=== PATIENT | male | born 1985 | race Caucasian/White ===

== ENCOUNTER 2018-11-14 20:51 | Inpatient (IN) | payer BC ==
[~2018-11-14] VITALS: Ht 177.8 cm; Wt 185.6 kg
[~2018-11-14 20:51] MED LIST: BEN25 PO; CEPH-443 PO; HYDR-3601 PO; PRED20TA PO; SACC250C PO; SULF1TAB31 PO
[2018-11-14] MEDS ORDERED: SOD CHLORIDE 0.9% 1,000 ML IV SCH (20:55)
[2018-11-14] MEDS ORDERED: ONDANSETRON 4 MG INJ IV PRN ×2 (21:00→23:30)
[2018-11-14] MEDS ORDERED: morphine 2 MG INJ IV PRN (21:00)
[2018-11-14] MEDS ORDERED: NACL 0.9% 3 ML SYG IV SCH (21:00)
[2018-11-14] MEDS ORDERED: VANCOMYCIN IV PER PHARMACY XX SCH (21:00)
[2018-11-14] MEDS ORDERED: ACETAMINOPHEN 325 MG TAB PO PRN ×2 (21:00→23:30)
[2018-11-14] MEDS ORDERED: BISACODYL (EC) 5 MG TAB PO PRN (21:00)
--- NOTE | 2018-11-14 22:03 | HP ---
Date/Time of Note Date/Time of Note DATE: 11/14/18 TIME: 21:52 Assessment/Plan VTE Prophylaxis SCD applied (from Nsg): Yes Pharmacological prophylaxis: NA/contraindicated Pharm contraindication: low risk/ambulating Assessment/Plan Hospital Course This is a 33-year-old [facility] for: #1 right groin abscess: Ultrasound shows evidence of a fluid collection consistent with likely a phlegmon/abscess, please see HPI for full details. Pat ient at the current time will be taken to the OR for I&D/drainage of the abscess by the general surgeon on-call . IV fluid hydration with normal saline. We will continue vancomycin and Zosyn. Pain management with morphine. Zofran for nausea. #2 morbidly obese: We will check hemoglobin A1C, lipid panel, TSH. Encourage diet and lifestyle modification. #3 DVT GI prophylaxis: SCDs, no GI prophylaxis indicated Further treatment strategy will be implemented as per the clinical course. HPI/ROS Admit Date/Time Admit Date/Time Hx of Present Illness Chief complaint: Right groin pain, redness This is a 33-year-old male with no past medical history who presented originally to [facility] with symptoms of right inguinal swelling and pain. Patient was transferred to [facility] secondary to insurance purposes. Patient reports that originally he had pain of his right groin on Tuesday. He went to [place] [facility] and had a CT scan performed which showed no bowel obstruction or free anterior abdominal air large fatty infiltrated liver. Small ventral hernia containing fat. Patient was given pain medication and discharged home. He states that he did have nausea earlier today but he attributes that to him getting the tramadol. He stated that he started noticing redness and pain of his right groin which took him back to the emergency department. He had a ultrasound performed of the groin which showed 3.4 cm x 2.3 cm x 1.3 cm heterogeneous collection in the right inguinal region possibly reflecting phlegmon or abscess. No hernia defect is seen. His vitals at [place] showed: Temperature 99.3/pulse 95/respirations 18/blood pressure 131/84/SPO2 93% on room air. EKG showed: Normal sinus rhythm with no concerning ST or T wave normalities. Upon arrival to [facility] emergency department patient reported continued pain in his right groin region. He states that he received morphine at [place] which did help him. I did consult the surgeon on-call regarding the case who graciously came to the bedside. He did see and evaluate the patient and his recommendation was to go to the OR for incision and debridement. Patient also will be initiated on broad-spectrum antibiotics of vancomycin and Zosyn which she already did receive a dose of at [place] [facility] prior to transfer. Pertinent laboratory findings showed: CBC: White blood cells 19.9/hemoglobin 16.8/hematocrit 49.5/platelet count 245 BMP: Sodium 135/potassium 4.1/chloride 95/CO2 28//BUN 8/creatinine 0.79/ Coags: PT 14.3/INR 1.1/PTT 35 lactic acid 1.1 Allergies: NKDA medications: None ROS Const: As per HPI Eyes : No pain discharge or redness or change in visual acuity ENT: No pain, sore throat, congestion, congestion, dysphagia or discharge Respiratory: No shortness of breath, cough, sputum, wheezing, or pleuritic pain Cardiovascular: No chest pain, palpitation, PND, or edema GI : no change in appetite, abdominal pain, nausea, vomiting, diarrhea, constipation, or change in the color his stool Genitourinary: As per HPI Musculoskeletal: No joint pain, back pain, neck pain, restricted range of motion in neck or joints Skin: No rash, bruising or hives Neuro: No headache, dizziness, syncope, seizure, focal weakness Endocrine: No polyuria, polydipsia, temperature intolerance Psych: No hallucination, depression, anxiety or suicidal ideation PMH/Family/Social Past Medical History Medical History: no pertinent history Medications Current Medications Sodium Chloride 1,000 ml @ 75 mls/hr [id number] IV ; Start 11/14/18 at 20:55 IV Flush (NS 3 ml) 3 ml PER PROTOCOL IV ; Start 11/14/18 at 21:00 Ondansetron HCl (Zofran Inj) 4 mg Q6H PRN IV NAUSEA/VOMITING; Start 11/14/18 at 21:00 Acetaminophen (Tylenol Tab) 650 mg Q6H PRN PO .PAIN 1-3 OR TEMP; Start 11/14/18 at 21:00 Acetaminophen/ Hydrocodone Bitart ([place] (5/325)) 1 tab Q6H PRN PO .MOD PAIN 4- 6; Start 11/14/18 at 21:00 Docusate Sodium (Colace) 100 mg Q12H PRN PO .CONSTIPATION; Start 11/14/18 at 21:00 Bisacodyl (Dulcolax) 5 mg DAILY PRN PO .CONSTIPATION; Start 11/14/18 at 21:00 Vancomycin HCl (Vanco Iv Per Pharmacy) VANCOMYCIN PER PHARMACY PER PROTOCOL XX ; Start 11/14/18 at 21:00; Status UNV Piperacillin Sod/ Tazobactam Sod 100 ml @ 200 mls/hr Q6 IVPB ; Start 11/15/18 at 00:00 Morphine Sulfate (morphine) 4 mg Q4H PRN IV .SEVERE PAIN 7-10; Start 11/15/18 at 01:00 Coded Allergies: No Known Allergy (Unverified , 11/14/18) Past Surgical History Past Surgical Hx: no surgical history Family History Significant Family History: no pertinent family hx Social History Alcohol Use: none Drug Use: marijuana Exam/Review of Systems Vital Signs Vitals Vital Signs Date Temp Pulse Resp B/P (MAP) Pulse Ox O2 O2 Flow FiO2 Time Delivery Rate 11/14/18 98.7 79 19 142/81 100 20:56 (101) Exam Exam General: Patient is a pleasant male currently lying in bed he does appear to be in mild distress when his groin is palpated. HEENT: Atraumatic, normocephalic. The pupils are equal, round and reactive. Extraocular motor are intact Neck: Supple with full range of motion. No rigidity or meningismus Chest: Nontender Lungs: Clear to auscultation bilaterally no crackles rales or wheezing Heart: Normal S1-S2, Regular rhythm and rate. No murmur, S3, or S4 Abdomen: Soft , nontender, nondistended , bowel sounds are present. No guarding no rebound tenderness , No masses or organomegaly. No costovertebral temporal angle mass Genitourinary: Swelling and tenderness and redness noted at the right groin/inguinal region. No crepitus. Skin: Swelling and tenderness and redness noted at the right groin/inguinal region. No crepitus. Extremities: Normal to inspection, no edema no cyanosis Neurologic: Normal mental status, speech normal, cranial nerves II through XII are intact, motor and sensory are intact, ELVA,BELL Nov 14, 2018 22:02
[2018-11-14] MEDS ORDERED: morphine 4 MG/ML VIAL IV STA (22:12)
[2018-11-14] MEDS ORDERED: ONDANSETRON 4 MG INJ IV STA (22:12)
--- NOTE | 2018-11-14 22:16 | CONS ---
Assessment/Plan Assessment/Plan Problems: (1) Abscess of right groin Status: Acute Assessment/Plan (Daily) Based on the clinical picture and the previous ultrasound imaging I assume the patient has a right groin abscess. Given the high white count and significant swelling or redness I think the patient needs urgent incisional drainage of the right abscess to avoid this further spread. Consultation Date/Type/Reason Admit Date/Time Date of Consultation: Nov 14, 2018 Type of Consult Surgical Reason for Consultation Right groin abscess Date/Time of Note DATE: 11/14/18 TIME: 22:11 Hx of Present Illness Chief complaint: Right groin pain, redness This is a 33-year-old male with no past medical history who presented originally to [facility] with symptoms of right inguinal swelling and pain. Patient reports that originally he had pain of his right groin on Tuesday. He went to [place] ER and had a CT scan performed which showed no bowel obstruction or free anterior abdominal air large fatty infiltrated liver. Small ventral hernia containing fat. Patient was given pain medication and discharged home. He states that he did have nausea earlier today but he attributes that to him getting the tramadol. He stated that he started noticing redness and pain of his right groin which took him back to the emergency department. He had a ultrasound performed of the groin which showed 3.4 cm x 2.3 cm x 1.3 cm heterogeneous collection in the right inguinal region possibly reflecting phlegmon or abscess. No hernia defect is seen. She is vitals at [place] showed: Temperature 99.3/pulse 95/respirations 18/blood pressure 131/84/SPO2 93% on room air. EKG showed: Normal sinus rhythm with no concerning ST or T wave normalities. Pertinent laboratory findings showed: White blood cells 19.9/hemoglobin 16.8/hematocrit 49.5/platelet count 245 Sodium 135/potassium 4.1/chloride 95/CO2 28//BUN 8/creatinine 0.79/PT 14.3/INR 1.1/PTT 35 lactic acid 1.1 Constitutional: no complaints, improved Eyes: no complaints ENT: no complaints Respiratory: no complaints Cardiovascular: no complaints Gastrointestinal: no complaints Genitourinary: no complaints Musculoskeletal: no complaints Skin: no complaints Neurologic: no complaints Endocrine: no complaints Lymphatic: no complaints Psychological: no complaints, nl mood/affect Immunologic: no complaints Past Medical History Medical History: no pertinent history Medications Current Medications Sodium Chloride 1,000 ml @ 75 mls/hr [id number] IV ; Start 11/14/18 at 20:55 IV Flush (NS 3 ml) 3 ml PER PROTOCOL IV ; Start 11/14/18 at 21:00 Ondansetron HCl (Zofran Inj) 4 mg Q6H PRN IV NAUSEA/VOMITING; Start 11/14/18 at 21:00 Acetaminophen (Tylenol Tab) 650 mg Q6H PRN PO .PAIN 1-3 OR TEMP; Start 11/14/18 at 21:00 Acetaminophen/ Hydrocodone Bitart ([place] (5/325)) 1 tab Q6H PRN PO .MOD PAIN 4- 6; Start 11/14/18 at 21:00 Docusate Sodium (Colace) 100 mg Q12H PRN PO .CONSTIPATION; Start 11/14/18 at 21:00 Bisacodyl (Dulcolax) 5 mg DAILY PRN PO .CONSTIPATION; Start 11/14/18 at 21:00 Vancomycin HCl (Vanco Iv Per Pharmacy) VANCOMYCIN PER PHARMACY PER PROTOCOL XX ; Start 11/14/18 at 21:00 Piperacillin Sod/ Tazobactam Sod 100 ml @ 200 mls/hr Q6 IVPB ; Start 11/15/18 at 00:00 Morphine Sulfate (morphine) 4 mg Q4H PRN IV .SEVERE PAIN 7-10; Start 11/15/18 at 01:00 Vancomycin HCl 2 gm/Sodium Chloride 500 ml @ 125 mls/hr Q24H IVPB ; Start 11/14/18 at 22:30; Stop 11/14/18 at 23:59 Allergies: Coded Allergies: No Known Allergy (Unverified , 11/14/18) Past Surgical History Past Surgical Hx: no surgical history Social History Drug Use: marijuana Exam/Review of Systems Exam Vitals Vital Signs Date Temp Pulse Resp B/P (MAP) Pulse Ox O2 O2 Flow FiO2 Time Delivery Rate 11/14/18 98.7 79 19 142/81 100 20:56 (101) Constitutional: alert, oriented, well developed Psych: no complaints, nl mood/affect Head: normocephalic, atraumatic Eyes: nl conjunctiva, EOMI, nl lids, nl sclera, PERRL ENMT: nl external ears & nose, nl lips & teeth, nl nasal mucosa & septum Neck: supple, non-tender Respiratory: clear to auscultation, normal air movement Cardiovascular: regular rate and rhythm, nl pulses Gastrointestinal: soft, nl liver, spleen, non-tender, other (The right groin is tender with redness and significant swelling, not obvious fluctuation can be felt, but the patient is very sensitive to touch.) Musculoskeletal: nl extremities to inspection, nl gait and stance Extremities: normal pulses 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, nl mental status, nl speech, nl strength Skin: nl turgor; No rash or lesions Lymph: nl lymph nodes Medications Medication Current Medications Sodium Chloride 1,000 ml @ 75 mls/hr [id number] IV ; Start 11/14/18 at 20:55 IV Flush (NS 3 ml) 3 ml PER PROTOCOL IV ; Start 11/14/18 at 21:00 Ondansetron HCl (Zofran Inj) 4 mg Q6H PRN IV NAUSEA/VOMITING; Start 11/14/18 at 21:00 Acetaminophen (Tylenol Tab) 650 mg Q6H PRN PO .PAIN 1-3 OR TEMP; Start 11/14/18 at 21:00 Acetaminophen/ Hydrocodone Bitart ([place] (5/325)) 1 tab Q6H PRN PO .MOD PAIN 4- 6; Start 11/14/18 at 21:00 Docusate Sodium (Colace) 100 mg Q12H PRN PO .CONSTIPATION; Start 11/14/18 at 21:00 Bisacodyl (Dulcolax) 5 mg DAILY PRN PO .CONSTIPATION; Start 11/14/18 at 21:00 Vancomycin HCl (Vanco Iv Per Pharmacy) VANCOMYCIN PER PHARMACY PER PROTOCOL XX ; Start 11/14/18 at 21:00 Piperacillin Sod/ Tazobactam Sod 100 ml @ 200 mls/hr Q6 IVPB ; Start 11/15/18 at 00:00 Morphine Sulfate (morphine) 4 mg Q4H PRN IV .SEVERE PAIN 7-10; Start 11/15/18 at 01:00 Vancomycin HCl 2 gm/Sodium Chloride 500 ml @ 125 mls/hr Q24H IVPB ; Start 11/14/18 at 22:30; Stop 11/14/18 at 23:59 TAYLOR HEALY MD Nov 14, 2018 22:16
[2018-11-14] MEDS ORDERED: VANCOMYCIN HCL 2 GM in SOD CHLORIDE 0.9% 500 ML IVPB SCH (22:30)
--- NOTE | 2018-11-14 22:36 | PREAC ---
Date/Time of Note Date/Time of Note DATE: 11/14/18 TIME: 22:34 Anesthesia Eval and Record Evaluation Time Pre-Procedure Interview DATE: 11/14/18 TIME: 22:34 Age 33 Sex male NPO: 8 hrs Preoperative diagnosis Rt groin abscess Planned procedure I&D Rt groin abscess Past Medical History Past Medical History: Includes Pulm: COPD, Sleep Apnea, Home CPAP GI: Morbid obesity Surgery & Anesthesia Issues No known issue Meds Anticoagulation: No Beta Galdino within 24 hr: No Reason Beta Galdino not given: Pt. not on B-Galdino Current Medications Sodium Chloride 1,000 ml @ 75 mls/hr [id number] IV ; Start 11/14/18 at 20:55 IV Flush (NS 3 ml) 3 ml PER PROTOCOL IV ; Start 11/14/18 at 21:00 Ondansetron HCl (Zofran Inj) 4 mg Q6H PRN IV NAUSEA/VOMITING; Start 11/14/18 at 21:00 Acetaminophen (Tylenol Tab) 650 mg Q6H PRN PO .PAIN 1-3 OR TEMP; Start 11/14/18 at 21:00 Acetaminophen/ Hydrocodone Bitart ([place] (5/325)) 1 tab Q6H PRN PO .MOD PAIN 4- 6; Start 11/14/18 at 21:00 Docusate Sodium (Colace) 100 mg Q12H PRN PO .CONSTIPATION; Start 11/14/18 at 21:00 Bisacodyl (Dulcolax) 5 mg DAILY PRN PO .CONSTIPATION; Start 11/14/18 at 21:00 Vancomycin HCl (Vanco Iv Per Pharmacy) VANCOMYCIN PER PHARMACY PER PROTOCOL XX ; Start 11/14/18 at 21:00 Piperacillin Sod/ Tazobactam Sod 100 ml @ 200 mls/hr Q6 IVPB ; Start 11/15/18 at 00:00 Morphine Sulfate (morphine) 4 mg Q4H PRN IV .SEVERE PAIN 7-10; Start 11/15/18 at 01:00 Vancomycin HCl 2 gm/Sodium Chloride 500 ml @ 125 mls/hr Q24H IVPB ; Start 11/14/18 at 22:30; Stop 11/14/18 at 23:59 Meds reviewed: Yes Allergies Coded Allergies: No Known Allergy (Unverified , 11/14/18) Allergies Reviewed: Yes Labs/Studies Labs Reviewed: Reviewed by anesthesiologist test: N/A Studies: ECG Pre-procedure Exam Last vitals Vital Signs Date Temp Pulse Resp B/P (MAP) Pulse Ox O2 O2 Flow FiO2 Time Delivery Rate 11/14/18 98.7 95 19 137/71 98 22:11 (93) Airway: Adequate mouth opening, Adequate thyromental dist Mallampati: Mallampati III Teeth: Normal Lung: Normal Heart: Normal ASA Physical Status ASA physical status: 3 Emergency: E Planned Anesthetic General/MAC: MAC Planned Pain Management Parenteral pain med, Local by surgeon Pre-operative Attestations Prior to commencing anesthesia and surgery, the patient was re-evaluated, there was verification of: *The patient's identity *The results of appropriate recent lab work and preoperative vital signs *The above evaluation not changing prior to induction *Anesthetic plan, risk benefits, alternative and complications discussed with patient/family; questions answered; patient/family understands, accepts and wishes to proceed. WAYLON MADRIGAL MD Nov 14, 2018 22:36
[2018-11-14] MEDS ORDERED: KETAMINE (50 MG/ML) 10 ML VIAL ONE (22:50)
[2018-11-14] MEDS ORDERED: MIDAZOLAM 1 MG/ML 2 ML INJ ONE (22:50)
[2018-11-14] MEDS ORDERED: FENTAnyl 50 MCG/ML VIAL ONE ×2 (22:50→23:05)
[2018-11-14] MEDS ORDERED: LIDOCAINE 2% (SDV) 5 ML INJ ONE (23:14)
[2018-11-14] MEDS ORDERED: PROPOFOL 20 ML ONE (23:14)
--- NOTE | 2018-11-14 23:23 | OPR ---
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 Procedure Description Patient was placed supine. IV sedation was induced by anesthesiologist. The right groin was prepped and draped in usual sterile fashion. The wound was probed with the 16-gauge needle and small amount of past was obtained. Over this point the incision incision was made over the most tender in's swelled part of the right groin. It was carried down through the subcutaneous tissue to the subcutaneous fat. No obvious collection was encountered the area was generously incised and drained. The wound was packed and and dressed. TAYLOR HEALY MD Nov 14, 2018 23:23
[2018-11-14 23:25] VITALS: BP 147/76; PULSE 96; RESP 33
--- NOTE | 2018-11-14 23:25 | PAC ---
Date/Time of Note Date/Time of Note DATE: 11/14/18 TIME: 23:24 Post-Anesthesia Notes Post-Anesthesia Note Last documented vital signs Vital Signs Date Temp Pulse Resp B/P (MAP) Pulse Ox O2 O2 Flow FiO2 Time Delivery Rate 11/14/18 98.7 95 19 137/71 98 22:11 (93) Activity: WNL Respiratory function: WNL Cardiovascular function: WNL Mental status: Baseline Pain reasonably controlled: Yes Hydration appropriate: Yes Nausea/Vomiting absent: Yes Comments BP:136/72, P:89, Spo2:100%, T:98,8 WAYLON MADRIGAL MD Nov 14, 2018 23:25
[2018-11-14 23:30] VITALS: BP 100/52; PULSE 94; RESP 30
[2018-11-14] MEDS ORDERED: FENTAnyl 50 MCG/ML VIAL IV PRN (23:30)
[2018-11-14] MEDS ORDERED: DIPHENHYDRAMINE 50 MG INJ IV PRN ×2 (23:30)
[2018-11-14] MEDS ORDERED: IBUPROFEN 600 MG TAB PO PRN (23:30)
[2018-11-14] MEDS ORDERED: MEPERIDINE 25 MG INJ IV PRN (23:30)
[2018-11-14] MEDS ORDERED: hydrALAzine 20 MG INJ IV PRN (23:30)
[2018-11-14] MEDS ORDERED: HYDROmorphONE 1 MG/5 ML IV SYRINGE IV PRN ×2 (23:30)
[2018-11-14] MEDS ORDERED: LABETALOL HCL 20MG INJ IV PRN (23:30)
[2018-11-14] MEDS ORDERED: METOCLOPRAMIDE 10 MG INJ IV PRN (23:30)
--- NOTE | 2018-11-14 23:33 | ERD ---
ER Documentation Chief Complaint Chief Complaint sheba pa from dry run for abscess, admission HPI This is a 33-year-old male who presented to the emergency department transferred from [facility] as a direct admission. Given that there is no beds available the patient did have to go through the emergency room. He had been admitted to the primary care physician Dr. Casey who kindly came in initially evaluated the patient as well. The patient has no underlying past medical history. The patient was complaining of right inguinal pain and swelling which took him to [facility]. Due to insurance purposes he was brought to [facility] [place]. An ultrasound have been obtained at [facility] which indicated there was a 3.4 x 2.3 x 1.3 cm heterogeneous collection in the right inguinal region likely suggestive of a phlegmon or abscess. There is no hernia that was seen. No recent fever shaking or chills. ROS All systems reviewed and are negative except as per history of present illness. Allergies Allergies: Coded Allergies: No Known Allergy (Unverified , 11/14/18) PMhx/Soc Medical and Surgical Hx: pt denies Medical Hx, pt denies Surgical Hx Hx Alcohol Use: No Hx Substance Use: Yes (Marijuana) Hx Tobacco Use: No Smoking Status: Never smoker Physical Exam Vitals Vital Signs Date Temp Pulse Resp B/P (MAP) Pulse Ox O2 O2 Flow FiO2 Time Delivery Rate 11/14/18 98.7 79 19 142/81 100 20:56 (101) Physical Exam Constitutional:Well-developed. Well-nourished. Respiratory: Not using accessory muscles of respiration.Lungs were clear to auscultation bilaterally. No rhonchi. No rales. No wheezing. Cardiovascular: Regular rate regular rhythm.No murmurs. No rubs were appreciated.S1, S2 normal. Distal pulses are palpable 2+ bilaterally. GI: Abdomen was obese so exam is limited due to body habitus. Nontender. Non D istended. No pulsatile abdominal masses or bruits. No rebound. No guarding. Bowel sounds were present and normal. : Right inguinal swelling with warmth tenderness. Normal lie to both testicles. Results 24 hrs Current Medications Medications Dose Sig/Caren Start Time Status Last (Trade) Ordered Route PRN Stop Time Admin Dose Reason Admin Sodium 1,000 ml @ [id number] IV 8/6/19 DC Chloride 75 mls/hr 20:55 11/14/18 23:24 IV Flush 3 ml PER 11/14/18 (NS 3 ml) PROTOCOL IV 21:00 Ondansetron 4 mg Q6H PRN 11/14/18 HCl (Zofran IV 21:00 Inj) NAUSEA/VOMITI NG 650 mg Q6H PRN 11/14/18 DC Acetaminophen PO .PAIN 1-3 21:00 11/14/18 (Tylenol OR TEMP 23:22 Tab) 1 tab Q6H PRN 11/14/18 Acetaminophen PO .MOD PAIN 21:00 / 4-6 Hydrocodone Bitart ([place] (5/325)) Morphine 2 mg Q4H PRN 11/14/18 DC Sulfate IV .SEVERE 21:00 11/14/18 (morphine) PAIN 7-10 21:41 Docusate 100 mg Q12H PRN 11/14/18 Sodium PO 21:00 (Colace) .CONSTIPATION Bisacodyl 5 mg DAILY PRN 11/14/18 (Dulcolax) PO 21:00 .CONSTIPATION Vancomycin VANCOMYCIN PER 11/14/18 HCl (Vanco PER PHARMACY PROTOCOL XX 21:00 Iv Per Pharmacy) Procedures/MDM This is a 33-year-old male who been seen and evaluated already admitted to the hospitalist. However given that no beds were available upon the patient's arrival he was placed in the emergency room. Dr. Casey was at bedside to fur ther manage the patient's inpatient care. He had administered IV antibiotics. The surgeon Dr. Melgar had kindly came to the bedside immediately took the patient to the OR for definitive treatment. Departure Diagnosis: Primary Impression: Complicated abscess Condition: Serious ANDRA PADILLA MD Nov 14, 2018 23:32
[2018-11-14 23:35] VITALS: BP 116/58; PULSE 92; RESP 29
[2018-11-14 23:40] VITALS: BP 124/65; PULSE 100; RESP 30
[2018-11-14 23:45] VITALS: BP 108/65; PULSE 90; RESP 31
[2018-11-14 23:50] VITALS: BP 104/67; PULSE 98; RESP 31
[2018-11-15 00:28] VITALS: BP 130/62; PULSE 107; RESP 25
[2018-11-15] MEDS: PIPER-TAZO 3.375 GM IV (PMX) 100 ML IVPB SCH ×5 (00:43→23:26)
[2018-11-15] MEDS: D5W-0.45 NACL + KCL 20 MEQ 1,000 ML IV SCH ×3 (00:43→19:17)
[2018-11-15] MEDS: morphine 2 MG INJ IV PRN ×6 (00:50→23:27)
[2018-11-15 00:59] VITALS: Ht 177.8 cm; Wt 185.6 kg
[2018-11-15 02:10] VITALS: BP 121/58; PULSE 92; RESP 18
[2018-11-15 04:18] VITALS: PULSE 78
[2018-11-15] MEDS: HYDROCODONE/APAP (5/325) TAB PO PRN ×3 (06:33→17:48)
[2018-11-15 08:00] VITALS: BP 129/69; PULSE 74; RESP 18
[2018-11-15] MEDS: HEPARIN 5,000 UNIT/1 ML VIAL SC SCH ×2 (09:00→20:12)
[2018-11-15] MEDS: VANCOMYCIN 1.5 GM/NS 250 ML 250 ML IVPB SCH ×2 (09:25→17:48)
[2018-11-15 14:00] VITALS: BP 129/69; PULSE 89; RESP 18
--- NOTE | 2018-11-15 15:46 | PN ---
Date/Time of Note Date/Time of Note DATE: 11/15/18 TIME: 15:37 Assessment/Plan VTE Prophylaxis Risk score (from Ns)>0 risk: 1 SCD applied (from [facility]): No SCD contraindicated: other Pharmacological prophylaxis: heparin Lines/Catheters IV Catheter Type (from [facility]): Peripheral IV Assessment/Plan Assessment/Plan 1. Right groin abscess, s/p I&D on 11/14/2018, continue wound care and antibiotics, follow up with culture, wound care 2. Morbidly obese, encourage diet and lifestyle modification. 3 DVT GI prophylaxis: heparin Result Diagram: 11/15/18 0313 11/15/183 Results 24hrs Laboratory Tests Test 11/15/18 03:13 White Blood Count 18.8 H Red Blood Count 4.98 Hemoglobin 15.1 Hematocrit 45.1 Mean Corpuscular Volume 90.6 Mean Corpuscular Hemoglobin 30.3 Mean Corpuscular Hemoglobin Concent 33.5 Red Cell Distribution Width 12.1 Platelet Count 228 Mean Platelet Volume 11.0 H Immature Granulocytes % 0.700 H Neutrophils % 86.0 H Lymphocytes % 7.9 L Monocytes % 4.6 Eosinophils % 0.3 Basophils % 0.5 Nucleated Red Blood Cells % 0.0 Immature Granulocytes # 0.130 H Neutrophils # 16.2 H Lymphocytes # 1.5 Monocytes # 0.9 Eosinophils # 0.1 Basophils # 0.1 Nucleated Red Blood Cells # 0.0 Erythrocyte Sedimentation Rate 34 H Sodium Level 140 Potassium Level 4.0 Chloride Level 101 Carbon Dioxide Level 31 Anion Gap 8 Blood Urea Nitrogen 10 Creatinine 0.78 Est Glomerular Filtrat Rate mL/min > 60 Glucose Level 161 Hemoglobin A1c 5.9 Lactic Acid Level 1.0 Calcium Level 8.3 L Total Bilirubin 1.3 Direct Bilirubin 0.00 Indirect Bilirubin 1.3 H Aspartate Amino Transf (AST/SGOT) 20 Alanine Aminotransferase (ALT/SGPT) 34 Alkaline Phosphatase 54 C-Reactive Protein 17.1 H Total Protein 7.1 Albumin 3.5 Globulin 3.60 H Albumin/Globulin Ratio 0.97 Triglycerides Level 71 Cholesterol Level 121 LDL Cholesterol, Calculated 84 HDL Cholesterol 23 L Cholesterol/HDL Ratio 5.2 Thyroid Stimulating Hormone (TSH) 0.647 Subjective 24 Hr Interval Summary Free Text/Dictation right groin pain Exam/Review of Systems Exam Vitals Vital Signs Date Temp Pulse Resp B/P (MAP) Pulse Ox O2 O2 Flow FiO2 Time Delivery Rate 11/15/18 98.0 89 18 129/69 95 14:00 (89) 11/15/18 Nasal 2.0 09:00 Cannula 11/15/18 35 04:18 Intake and Output 11/14/18 11/14/18 11/15/18 1515:00 23:00 07:00 IntakeIntake Total 1883 ml OutputOutput Total 10 ml BalanceBalance 1873 ml Constitutional: alert, oriented, well developed, obese Head: normocephalic, atraumatic Eyes: nl conjunctiva, EOMI, nl lids ENMT: nl external ears & nose, nl lips & teeth, nl nasal mucosa & septum Neck: supple, non-tender Respiratory: clear to auscultation, normal air movement; No congested cough, No crackles/rales, No diminished breath sounds, No intercostal retraction, No labored breathing, No respirations, No tactile fremitus, No wheezing, No other Cardiovascular: regular rate and rhythm, nl pulses; No bruits, No diastolic murmur, No edema, No gallop, No irregular rhythm, No jugular venous distention (JVD), No murmurs/extra sounds, No rub, No systolic murmur, No S3, No S4, No other Gastrointestinal: soft, nl liver, spleen, non-tender Musculoskeletal: nl extremities to inspection Extremities: other (right groin wound) 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, nl mental status, nl speech, nl strength Skin: nl turgor Results Results 24hrs Laboratory Tests Test 11/15/18 03:13 White Blood Count 18.8 H Red Blood Count 4.98 Hemoglobin 15.1 Hematocrit 45.1 Mean Corpuscular Volume 90.6 Mean Corpuscular Hemoglobin 30.3 Mean Corpuscular Hemoglobin Concent 33.5 Red Cell Distribution Width 12.1 Platelet Count 228 Mean Platelet Volume 11.0 H Immature Granulocytes % 0.700 H Neutrophils % 86.0 H Lymphocytes % 7.9 L Monocytes % 4.6 Eosinophils % 0.3 Basophils % 0.5 Nucleated Red Blood Cells % 0.0 Immature Granulocytes # 0.130 H Neutrophils # 16.2 H Lymphocytes # 1.5 Monocytes # 0.9 Eosinophils # 0.1 Basophils # 0.1 Nucleated Red Blood Cells # 0.0 Erythrocyte Sedimentation Rate 34 H Sodium Level 140 Potassium Level 4.0 Chloride Level 101 Carbon Dioxide Level 31 Anion Gap 8 Blood Urea Nitrogen 10 Creatinine 0.78 Est Glomerular Filtrat Rate mL/min > 60 Glucose Level 161 Hemoglobin A1c 5.9 Lactic Acid Level 1.0 Calcium Level 8.3 L Total Bilirubin 1.3 Direct Bilirubin 0.00 Indirect Bilirubin 1.3 H Aspartate Amino Transf (AST/SGOT) 20 Alanine Aminotransferase (ALT/SGPT) 34 Alkaline Phosphatase 54 C-Reactive Protein 17.1 H Total Protein 7.1 Albumin 3.5 Globulin 3.60 H Albumin/Globulin Ratio 0.97 Triglycerides Level 71 Cholesterol Level 121 LDL Cholesterol, Calculated 84 HDL Cholesterol 23 L Cholesterol/HDL Ratio 5.2 Thyroid Stimulating Hormone (TSH) 0.647 Medications Medication Current Medications IV Flush (NS 3 ml) 3 ml PER PROTOCOL IV ; Start 11/14/18 at 21:00 Ondansetron HCl (Zofran Inj) 4 mg Q6H PRN IV NAUSEA/VOMITING; Start 11/14/18 at 21:00 Acetaminophen/ Hydrocodone Bitart ([place] (5/325)) 1 tab Q6H PRN PO .MOD PAIN 4- 6; Start 11/14/18 at 21:00 Docusate Sodium (Colace) 100 mg Q12H PRN PO .CONSTIPATION; Start 11/14/18 at 21 :00 Bisacodyl (Dulcolax) 5 mg DAILY PRN PO .CONSTIPATION; Start 11/14/18 at 21:00 Vancomycin HCl (Vanco Iv Per Pharmacy) VANCOMYCIN PER PHARMACY PER PROTOCOL XX ; Start 11/14/18 at 21:00 Piperacillin Sod/ Tazobactam Sod 100 ml @ 200 mls/hr Q6 IVPB Last administered on 11/15/18at 12:13; Admin Dose 200 MLS/HR; Start 11/15/18 at 00:00 Morphine Sulfate (morphine) 4 mg Q4H PRN IV .SEVERE PAIN 7-10 Last administered on 11/15/18at 14:14; Admin Dose 4 MG; Start 11/15/18 at 01:00 Vancomycin/Sodium Chloride 250 ml @ 83.333 mls/ hr Q8H IVPB Last administered on 11/15/18at 09:25; Admin Dose 83.333 MLS/HR; Start 11/15/18 at 09:00 Acetaminophen (Tylenol Tab) 650 mg Q6H PRN PO MILD PAIN(1-3)OR ELEVATED TEMP; Start 11/14/18 at 23:30 Ibuprofen (Motrin) 600 mg Q6H PRN PO PAIN LEVEL 6-10; Start 11/14/18 at 23:30 Ketorolac Tromethamine (Toradol) 30 mg Q6H PRN IV PAIN; Start 11/14/18 at 23:30; Stop 11/17/18 at 23:29 Acetaminophen/ Hydrocodone Bitart ([place] (5/325)) 1 tab Q6H PRN PO PAIN LEVEL 6-10 Last administered on 11/15/18at 11:43; Admin Dose 1 TAB; Start 11/14/18 at 23:30 Diphenhydramine HCl (Benadryl) 25 mg Q6H PRN IV ITCHING; Start 11/14/18 at 23:30 Potassium Chloride/Dextrose/ Sod Cl 1,000 ml @ 100 mls/hr Q10H IV Last administered on 11/15/18at 09:30; Admin Dose 100 MLS/HR; Start 11/14/18 at 23:17 Heparin Sodium (Porcine) (Heparin (5000 Units/1ml)) 5,000 unit Q12 SC ; Start 11/15/18 at 09:00 MIRIAN GUERRA MD Nov 15, 2018 15:46
--- NOTE | 2018-11-15 17:52 | PN ---
Date/Time of Note Date/Time of Note DATE: 11/15/18 TIME: 17:51 Assessment/Plan Lines/Catheters IV Catheter Type (from Nrs): Peripheral IV Assessment/Plan Assessment/Plan Dressing change by wound nurse. Follow the culture results. Continue antibiotics. Subjective 24 Hr Interval Summary Patient is stable, afebrile. The first incision of drainage of the right groin abscess. On exam still redness induration however less than yesterday. Exam/Review of Systems Vital Signs Vitals Vital Signs Date Temp Pulse Resp B/P (MAP) Pulse Ox O2 O2 Flow FiO2 Time Delivery Rate 11/15/18 98.0 89 18 129/69 95 14:00 (89) 11/15/18 Nasal 2.0 09:00 Cannula 11/15/18 35 04:18 Intake and Output 11/14/18 11/14/18 11/15/18 1515:00 23:00 07:00 IntakeIntake Total 1883 ml OutputOutput Total 10 ml BalanceBalance 1873 ml Results Result Diagram: 11/15/18 0313 11/15/18 0313 TAYLOR HEALY MD Nov 15, 2018 17:52
[2018-11-15 21:14] VITALS: BP 130/77; PULSE 91; RESP 18
[2018-11-16] MEDS: VANCOMYCIN 1.5 GM/NS 250 ML 250 ML IVPB SCH ×2 (00:39→08:43)
[2018-11-16] MEDS: HYDROCODONE/APAP (5/325) TAB PO PRN ×2 (00:57→12:12)
[2018-11-16 02:20] VITALS: BP 125/66; PULSE 89; RESP 18
[2018-11-16] MEDS: D5W-0.45 NACL + KCL 20 MEQ 1,000 ML IV SCH ×3 (05:17→16:48)
[2018-11-16] MEDS: PIPER-TAZO 3.375 GM IV (PMX) 100 ML IVPB SCH ×3 (05:50→22:25)
[2018-11-16] MEDS: morphine 2 MG INJ IV PRN ×4 (05:53→20:44)
[2018-11-16 07:23] VITALS: BP 132/66; PULSE 92; RESP 15
[2018-11-16] MEDS: HEPARIN 5,000 UNIT/1 ML VIAL SC SCH ×2 (08:46→20:46)
[2018-11-16] MEDS ORDERED: COLLAGENASE 5 GM (UD JAR) TOP ONE (10:47)
--- NOTE | 2018-11-16 12:49 | PN ---
Date/Time of Note Date/Time of Note DATE: 11/16/18 TIME: 12:46 Assessment/Plan VTE Prophylaxis Risk score (from Ns)>0 risk: 2 SCD applied (from Ns): Yes Pharmacological prophylaxis: heparin Lines/Catheters IV C[facility]ter Type (from [facility]): Peripheral IV Assessment/Plan Assessment/Plan 1. Right groin abscess, s/p I&D on 11/14/2018, continue wound care and antibiotics, follow up with culture 2. Morbidly obese, encourage diet and lifestyle modification. 3 DVT GI prophylaxis: heparin Result Diagram: 11/16/18 0422 11/16/18 0422 Results 24hrs Laboratory Tests Test 11/16/18 04:22 11/16/18 08:14 White Blood Count 17.9 H Red Blood Count 4.89 Hemoglobin 14.7 Hematocrit 44.4 Mean Corpuscular Volume 90.8 Mean Corpuscular Hemoglobin 30.1 Mean Corpuscular Hemoglobin Concent 33.1 Red Cell Distribution Width 12.1 Platelet Count 226 Mean Platelet Volume 11.8 H Immature Granulocytes % 0.600 H Neutrophils % 80.3 H Lymphocytes % 11.2 L Monocytes % 5.7 Eosinophils % 1.7 Basophils % 0.5 Nucleated Red Blood Cells % 0.0 Immature Granulocytes # 0.100 H Neutrophils # 14.4 H Lymphocytes # 2.0 Monocytes # 1.0 H Eosinophils # 0.3 Basophils # 0.1 Nucleated Red Blood Cells # 0.0 Sodium Level 136 Potassium Level 3.6 Chloride Level 98 Carbon Dioxide Level 32 H Anion Gap 6 Blood Urea Nitrogen 7 Creatinine 0.72 Est Glomerular Filtrat Rate mL/min > 60 Glucose Level 104 # Calcium Level 8.7 Total Bilirubin 1.1 Direct Bilirubin 0.00 Indirect Bilirubin 1.1 Aspartate Amino Transf (AST/SGOT) 23 Alanine Aminotransferase (ALT/SGPT) 36 Alkaline Phosphatase 67 Total Protein 6.9 Albumin 3.5 Globulin 3.40 H Albumin/Globulin Ratio 1.02 Vancomycin Level Trough 8.0 L Subjective 24 Hr Interval Summary Free Text/Dictation afebrile Exam/Review of Systems Exam Vitals Vital Signs Date Temp Pulse Resp B/P (MAP) Pulse Ox O2 O2 Flow FiO2 Time Delivery Rate 11/16/18 Nasal 2.0 10:36 Cannula 11/16/18 97.5 92 15 132/66 95 07:23 (88) 11/15/18 35 04:18 Intake and Output 11/15/18 11/15/18 11/16/18 1515:00 23:00 07:00 IntakeIntake Total 1597 ml 990 ml 1090 ml BalanceBalance 1597 ml 990 ml 1090 ml Constitutional: alert, oriented, well developed, obese Head: normocephalic, atraumatic Eyes: nl conjunctiva, EOMI, nl lids, PERRL ENMT: nl external ears & nose, nl lips & teeth, nl nasal mucosa & septum Neck: supple, non-tender Respiratory: clear to auscultation, normal air movement; No congested cough, No crackles/rales, No diminished breath sounds, No intercostal retraction, No labored breathing, No respirations, No tactile fremitus, No wheezing, No other Cardiovascular: regular rate and rhythm, nl pulses; No bruits, No diastolic murmur, No edema, No gallop, No irregular rhythm, No jugular venous distention (JVD), No murmurs/extra sounds, No rub, No systolic murmur, No S3, No S4, No other Gastrointestinal: soft, nl liver, spleen, non-tender Musculoskeletal: nl extremities to inspection Extremities: normal pulses; No calf tenderness, No cyanosis, No clubbing, No edema, No pitting pedal edema, No palpable cord, No tenderness, No other 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: PUMP TENDER II-XII 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, nl mental status, nl speech, nl strength Skin: other (right groin wound) Results Results 24hrs Laboratory Tests Test 11/16/18 04:22 11/16/18 08:14 White Blood Count 17.9 H Red Blood Count 4.89 Hemoglobin 14.7 Hematocrit 44.4 Mean Corpuscular Volume 90.8 Mean Corpuscular Hemoglobin 30.1 Mean Corpuscular Hemoglobin Concent 33.1 Red Cell Distribution Width 12.1 Platelet Count 226 Mean Platelet Volume 11.8 H Immature Granulocytes % 0.600 H Neutrophils % 80.3 H Lymphocytes % 11.2 L Monocytes % 5.7 Eosinophils % 1.7 Basophils % 0.5 Nucleated Red Blood Cells % 0.0 Immature Granulocytes # 0.100 H Neutrophils # 14.4 H Lymphocytes # 2.0 Monocytes # 1.0 H Eosinophils # 0.3 Basophils # 0.1 Nucleated Red Blood Cells # 0.0 Sodium Level 136 Potassium Level 3.6 Chloride Level 98 Carbon Dioxide Level 32 H Anion Gap 6 Blood Urea Nitrogen 7 Creatinine 0.72 Est Glomerular Filtrat Rate mL/min > 60 Glucose Level 104 # Calcium Level 8.7 Total Bilirubin 1.1 Direct Bilirubin 0.00 Indirect Bilirubin 1.1 Aspartate Amino Transf (AST/SGOT) 23 Alanine Aminotransferase (ALT/SGPT) 36 Alkaline Phosphatase 67 Total Protein 6.9 Albumin 3.5 Globulin 3.40 H Albumin/Globulin Ratio 1.02 Vancomycin Level Trough 8.0 L Medications Medication Current Medications IV Flush (NS 3 ml) 3 ml PER PROTOCOL IV ; Start 11/14/18 at 21:00 Ondansetron HCl (Zofran Inj) 4 mg Q6H PRN IV NAUSEA/VOMITING; Start 11/14/18 at 21:00 Acetaminophen/ Hydrocodone Bitart ([place] (5/325)) 1 tab Q6H PRN PO .MOD PAIN 4- 6 Last administered on 11/16/18at 12:12; Admin Dose 1 TAB; Start 11/14/18 at 21:00 Docusate Sodium (Colace) 100 mg Q12H PRN PO .CONSTIPATION; Start 11/14/18 at 21:00 Bisacodyl (Dulcolax) 5 mg DAILY PRN PO .CONSTIPATION; Start 11/14/18 at 21:00 Vancomycin HCl (Vanco Iv Per Pharmacy) VANCOMYCIN PER PHARMACY PER PROTOCOL XX ; Start 11/14/18 at 21:00 Piperacillin Sod/ Tazobactam Sod 100 ml @ 200 mls/hr Q6 IVPB Last administered on 11/16/18at 12:14; Admin Dose 200 MLS/HR; Start 11/15/18 at 00:00 Morphine Sulfate (morphine) 4 mg Q4H PRN IV .SEVERE PAIN 7-10 Last administered on 11/16/18at 10:11; Admin Dose 4 MG; Start 11/15/18 at 01:00 Vancomycin/Sodium Chloride 250 ml @ 83.333 mls/ hr Q8H IVPB Last administered on 11/16/18at 08:43; Admin Dose 83.333 MLS/HR; Start 11/15/18 at 09:00 Acetaminophen (Tylenol Tab) 650 mg Q6H PRN PO MILD PAIN(1-3)OR ELEVATED TEMP; Start 11/14/18 at 23:30 Ibuprofen (Motrin) 600 mg Q6H PRN PO PAIN LEVEL 6-10; Start 11/14/18 at 23:30 Ketorolac Tromethamine (Toradol) 30 mg Q6H PRN IV PAIN; Start 11/14/18 at 23:30; Stop 11/17/18 at 23:29 Acetaminophen/ Hydrocodone Bitart ([place] (5/325)) 1 tab Q6H PRN PO PAIN LEVEL 6-10 Last administered on 11/16/18at 00:57; Admin Dose 1 TAB; Start 11/14/18 at 23:30 Diphenhydramine HCl (Benadryl) 25 mg Q6H PRN IV ITCHING; Start 11/14/18 at 23:30 Potassium Chloride/Dextrose/ Sod Cl 1,000 ml @ 100 mls/hr Q10H IV Last administered on 11/15/18at 09:30; Admin Dose 100 MLS/HR; Start 11/14/18 at 23:17 Heparin Sodium (Porcine) (Heparin (5000 Units/1ml)) 5,000 unit Q12 SC Last administered on 11/15/18at 20:12; Admin Dose 5,000 UNIT; Start 11/15/18 at 09:00 MIRIAN GUERRA MD Nov 16, 2018 12:49
[2018-11-16] MEDS: KETOROLAC 30 MG INJ IV PRN (13:55)
[2018-11-16 14:47] VITALS: BP 123/79; PULSE 89; RESP 19
[2018-11-16] MEDS: VANCOMYCIN HCL 1.75 GM in SOD CHLORIDE 0.9% 500 ML IVPB SCH (16:55)
[2018-11-16 21:33] VITALS: BP 115/77; PULSE 74; RESP 18
[2018-11-17] MEDS: HYDROCODONE/APAP (5/325) TAB PO PRN (00:06)
[2018-11-17] MEDS: VANCOMYCIN HCL 1.75 GM in SOD CHLORIDE 0.9% 500 ML IVPB SCH ×2 (00:28→08:29)
[2018-11-17] MEDS: D5W-0.45 NACL + KCL 20 MEQ 1,000 ML IV SCH ×3 (01:17→19:10)
[2018-11-17 02:27] VITALS: BP 117/62; PULSE 72; RESP 20
[2018-11-17] MEDS: morphine 2 MG INJ IV PRN ×4 (02:45→19:10)
[2018-11-17] MEDS: PIPER-TAZO 3.375 GM IV (PMX) 100 ML IVPB SCH ×2 (05:05→13:20)
[2018-11-17 07:29] VITALS: BP 118/71; PULSE 82; RESP 18
[2018-11-17] MEDS: HEPARIN 5,000 UNIT/1 ML VIAL SC SCH ×2 (08:33→20:59)
[2018-11-17 13:58] VITALS: BP 136/78; PULSE 78; RESP 18
--- NOTE | 2018-11-17 14:17 | PN ---
Date/Time of Note Date/Time of Note DATE: 11/17/18 TIME: 14:10 Assessment/Plan VTE Prophylaxis [place] [facility] risk: 1 [place]CD applied [place] [facility] No SCD contraindicated: other Pharmacological prophylaxis: heparin Lines/Catheters IV Catheter Type (from [facility]): Peripheral IV Assessment/Plan Assessment/Plan 1. Right groin abscess, s/p I&D on 11/14/2018, continue wound care and cipro 2. Morbidly obese, encourage diet and lifestyle modification. 3 DVT GI prophylaxis: heparin Result Diagram: 11/17/18 0915 11/17/18 0915 Results 24hrs Laboratory Tests Test 11/17/18 09:15 White Blood Count 13.3 #H Red Blood Count 5.21 Hemoglobin 15.8 Hematocrit 47.3 Mean Corpuscular Volume 90.8 Mean Corpuscular Hemoglobin 30.3 Mean Corpuscular Hemoglobin Concent 33.4 Red Cell Distribution Width 12.1 Platelet Count 268 Mean Platelet Volume 11.1 H Immature Granulocytes % 0.600 H Neutrophils % 81.4 H Lymphocytes % 9.5 L Monocytes % 4.9 Eosinophils % 2.9 Basophils % 0.7 Nucleated Red Blood Cells % 0.0 Immature Granulocytes # 0.080 H Neutrophils # 10.9 H Lymphocytes # 1.3 Monocytes # 0.7 Eosinophils # 0.4 Basophils # 0.1 Nucleated Red Blood Cells # 0.0 Sodium Level 137 Potassium Level 3.8 Chloride Level 98 Carbon Dioxide Level 35 H Anion Gap 4 L Blood Urea Nitrogen 6 L Creatinine 0.72 Est Glomerular Filtrat Rate mL/min > 60 Glucose Level 123 Calcium Level 9.2 Total Bilirubin 0.8 Direct Bilirubin 0.00 Indirect Bilirubin 0.8 Aspartate Amino Transf (AST/SGOT) 23 Alanine Aminotransferase (ALT/SGPT) 31 Alkaline Phosphatase 67 Total Protein 7.8 Albumin 3.8 Globulin 4.00 H Albumin/Globulin Ratio 0.95 Subjective 24 Hr Interval Summary Free Text/Dictation afebrile Exam/Review of Systems Exam Vitals Vital Signs Date Temp Pulse Resp B/P (MAP) Pulse Ox O2 O2 Flow FiO2 Time Delivery Rate 11/17/18 98.9 78 18 136/78 96 13:58 (97) 11/16/18 Room Air 21:33 11/16/18 2.0 10:36 11/15/18 35 04:18 Intake and Output 11/16/18 11/16/18 11/17/18 1515:00 23:00 07:00 IntakeIntake Total 350 ml 560 ml 1300 ml BalanceBalance 350 ml 560 ml 1300 ml Constitutional: alert, oriented, obese Head: normocephalic, atraumatic Eyes: nl conjunctiva, EOMI, nl lids, PERRL ENMT: nl external ears & nose, nl lips & teeth, nl nasal mucosa & septum Neck: supple, non-tender Respiratory: clear to auscultation, normal air movement; No congested cough, No crackles/rales, No diminished breath sounds, No intercostal retraction, No labored breathing, No respirations, No tactile fremitus, No wheezing, No other Cardiovascular: regular rate and rhythm, nl pulses; No bruits, No diastolic murmur, No edema, No gallop, No irregular rhythm, No jugular venous distention (JVD), No murmurs/extra sounds, No rub, No systolic murmur, No S3, No S4, No other Gastrointestinal: soft, nl liver, spleen, non-tender Musculoskeletal: nl extremities to inspection, other (right grin with open wound from I&D, no significant discharge) 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: [employer] II-XII intact, nl mental status, nl speech, nl strength Skin: nl turgor Lymph: nl lymph nodes Results Results 24hrs Laboratory Tests Test 11/17/18 09:15 White Blood Count 13.3 #H Red Blood Count 5.21 Hemoglobin 15.8 Hematocrit 47.3 Mean Corpuscular Volume 90.8 Mean Corpuscular Hemoglobin 30.3 Mean Corpuscular Hemoglobin Concent 33.4 Red Cell Distribution Width 12.1 Platelet Count 268 Mean Platelet Volume 11.1 H Immature Granulocytes % 0.600 H Neutrophils % 81.4 H Lymphocytes % 9.5 L Monocytes % 4.9 Eosinophils % 2.9 Basophils % 0.7 Nucleated Red Blood Cells % 0.0 Immature Granulocytes # 0.080 H Neutrophils # 10.9 H Lymphocytes # 1.3 Monocytes # 0.7 Eosinophils # 0.4 Basophils # 0.1 Nucleated Red Blood Cells # 0.0 Sodium Level 137 Potassium Level 3.8 Chloride Level 98 Carbon Dioxide Level 35 H Anion Gap 4 L Blood Urea Nitrogen 6 L Creatinine 0.72 Est Glomerular Filtrat Rate mL/min > 60 Glucose Level 123 Calcium Level 9.2 Total Bilirubin 0.8 Direct Bilirubin 0.00 Indirect Bilirubin 0.8 Aspartate Amino Transf (AST/SGOT) 23 Alanine Aminotransferase (ALT/SGPT) 31 Alkaline Phosphatase 67 Total Protein 7.8 Albumin 3.8 Globulin 4.00 H Albumin/Globulin Ratio 0.95 Medications Medication Current Medications IV Flush (NS 3 ml) 3 ml PER PROTOCOL IV ; Start 11/14/18 at 21:00 Ondansetron HCl (Zofran Inj) 4 mg Q6H PRN IV NAUSEA/VOMITING; Start 11/14/18 at 21:00 Acetaminophen/ Hydrocodone Bitart ([place] (5/325)) 1 tab Q6H PRN PO .MOD PAIN 4- 6 Last administered on 11/16/18at 12:12; Admin Dose 1 TAB; Start 11/14/18 at 21:00 Docusate Sodium (Colace) 100 mg Q12H PRN PO .CONSTIPATION; Start 11/14/18 at 21:00 Bisacodyl (Dulcolax) 5 mg DAILY PRN PO .CONSTIPATION; Start 11/14/18 at 21:00 Vancomycin HCl (Vanco Iv Per Pharmacy) VANCOMYCIN PER PHARMACY PER PROTOCOL XX ; Start 11/14/18 at 21:00 Morphine Sulfate (morphine) 4 mg Q4H PRN IV .SEVERE PAIN 7-10 Last administered on 11/17/18at 08:27; Admin Dose 4 MG; Start 11/15/18 at 01:00 Acetaminophen (Tylenol Tab) 650 mg Q6H PRN PO MILD PAIN(1-3)OR ELEVATED TEMP; Start 11/14/18 at 23:30 Ibuprofen (Motrin) 600 mg Q6H PRN PO PAIN LEVEL 6-10; Start 11/14/18 at 23:30 Ketorolac Tromethamine (Toradol) 30 mg Q6H PRN IV PAIN Last administered on 11/16/18at 13:55; Admin Dose 30 MG; Start 11/14/18 at 23:30; Stop 11/17/18 at 23:29 Acetaminophen/ Hydrocodone Bitart ([place] (5/325)) 1 tab Q6H PRN PO PAIN LEVEL 6-10 Last administered on 11/17/18at 00:06; Admin Dose 1 TAB; Start 11/14/18 at 23:30 Diphenhydramine HCl (Benadryl) 25 mg Q6H PRN IV ITCHING; Start 11/14/18 at 23:30 Potassium Chloride/Dextrose/ Sod Cl 1,000 ml @ 100 mls/hr Q10H IV Last administered on 11/16/18at 16:48; Admin Dose 100 MLS/HR; Start 11/14/18 at 23:17 Heparin Sodium (Porcine) (Heparin (5000 Units/1ml)) 5,000 unit Q12 SC Last administered on 11/17/18at 08:33; Admin Dose 5,000 UNIT; Start 11/15/18 at 09:00 Vancomycin HCl 1.75 gm/Sodium Chloride 500 ml @ 125 mls/hr Q8H IVPB Last administered on 11/17/18at 08:29; Admin Dose 125 MLS/HR; Start 11/16/18 at 17:00 Miscellaneous Information (*Rx Drug Level Order Reminder*) VANCO TR LEVEL P RIOR... 1600 ONCE XX ; Start 11/17/18 at 16:00; Stop 11/17/18 at 16:01 Piperacillin Sod/ Tazobactam Sod 100 ml @ 200 mls/hr Q6 IVPB Last administered on 11/17/18at 13:20; Admin Dose 200 MLS/HR; Start 11/17/18 at 06:00 Collagenase (Santyl) 1 applic DAILY TOP ; Start 11/17/18 at 09:00 MIRIAN GUERRA MD Nov 17, 2018 14:17
[2018-11-17] MEDS: COLLAGENASE 5 GM (UD JAR) TOP SCH (14:26)
[2018-11-17] MEDS: CIPROFLOXACIN 500 MG TAB PO SCH (17:14)
[2018-11-17 20:54] VITALS: PULSE 84
[2018-11-17] MEDS: KETOROLAC 30 MG INJ IV PRN (20:58)
[2018-11-17 21:53] VITALS: BP 102/59; PULSE 76; RESP 18
[2018-11-18] MEDS: morphine 2 MG INJ IV PRN ×4 (01:23→20:25)
[2018-11-18 02:00] VITALS: BP 120/60; PULSE 76; RESP 21
[2018-11-18] MEDS: CIPROFLOXACIN 500 MG TAB PO SCH ×2 (06:53→17:35)
[2018-11-18 07:20] VITALS: BP 140/73; PULSE 80; RESP 78
[2018-11-18] MEDS: COLLAGENASE 5 GM (UD JAR) TOP SCH (08:39)
[2018-11-18] MEDS: HEPARIN 5,000 UNIT/1 ML VIAL SC SCH ×2 (08:44→21:17)
[2018-11-18] MEDS: HYDROCODONE/APAP (5/325) TAB PO PRN (08:46)
[2018-11-18 11:20] VITALS: BP 122/66; PULSE 62; RESP 20
[2018-11-18 15:20] VITALS: BP 132/70; PULSE 75; RESP 20
--- NOTE | 2018-11-18 17:14 | PN ---
Date/Time of Note Date/Time of Note DATE: 11/18/18 TIME: 17:11 Assessment/Plan VTE Prophylaxis Risk score (from Nsg)>0 risk: 4 SCD applied (from Ns): No SCD contraindicated: other Pharmacological prophylaxis: heparin Lines/Catheters IV [facility]from [facility] [place] Assessment/Plan Hospital Course SUBJECTIVE: Continues to complain of right groin pain. OBJECTIVE: Physical Exam General: Morbidly obese, 33 year-old male lying in bed in no apparent distress. HEENT: Normocephalic, atraumatic. Eyes: Anicteric sclerae, conjunctivae clear. ENT: Nasal septum is midline, oral mucosa moist. Neck: Short and obese. Respiratory: Bilaterally diminished breath sounds. No use of accessory muscles of respiration. No adventitious breath sounds. Cardiovascular: S1, S2 heard. Regular rate and rhythm. Abdomen: Soft, nontender, and nondistended. Bowel sounds positive in all 4 quadrants. Genitourinary: Right groin surgical dressing in place. Extremities: No cyanosis, no clubbing, no edema. Peripheral pulses palpable. Neurologic: Cranial nerves II through XII grossly intact. The patient is awake, alert, and oriented. Labs & Vitals per chart ASSESSMENT & PLAN 33-year-old male with no significant past medical history other than morbid obesity (BMI 58 kg/m) who presented to an outside facility with a right groin abscess, who was transferred to [facility] for further management because of insurance reasons. 1. Right groin abscess. Status post incision and drainage on 11/14/2018. Culture showing coagulase-negative Staphylococcus. Continue local wound care. Antimicrobials as per sensitivities. 2. Obesity. BMI 58 kg/m. Weight reduction advised. 3. Prediabetes. Hemoglobin A1c 5.9. Monitor random glucose levels. Low carbohydrate diet advised. 4. Fluids, electrolytes, and nutrition. Regular diet. 5. DVT prophylaxis. Subcutaneous heparin. 6. Plan. Continue antimicrobials. Obtain home health for daily dressing changes. Discharge plan is to discharge patient home once home health is arranged and antibiotics are finalized by ID. The patient was seen in collaboration with Dr. Wadsworth. Result Diagram: 11/18/18 0620 11/18/18 0620 Results 24hrs Laboratory Tests Test 11/18/18 06:20 White Blood Count 11.4 H Red Blood Count 5.18 Hemoglobin 15.6 Hematocrit 47.0 Mean Corpuscular Volume 90.7 Mean Corpuscular Hemoglobin 30.1 Mean Corpuscular Hemoglobin Concent 33.2 Red Cell Distribution Width 12.0 Platelet Count 272 Mean Platelet Volume 10.7 H Immature Granulocytes % 0.600 H Neutrophils % 73.6 Lymphocytes % 16.0 Monocytes % 5.5 Eosinophils % 3.6 Basophils % 0.7 Nucleated Red Blood Cells % 0.0 Immature Granulocytes # 0.070 H Neutrophils # 8.4 H Lymphocytes # 1.8 Monocytes # 0.6 Eosinophils # 0.4 Basophils # 0.1 Nucleated Red Blood Cells # 0.0 Sodium Level 140 Potassium Level 4.6 Chloride Level 99 Carbon Dioxide Level 33 H Anion Gap 8 Blood Urea Nitrogen 9 Creatinine 0.82 Est Glomerular Filtrat Rate mL/min > 60 Glucose Level 99 Calcium Level 9.4 Total Bilirubin 0.7 Direct Bilirubin 0.00 Indirect Bilirubin 0.7 Aspartate Amino Transf (AST/SGOT) 24 Alanine Aminotransferase (ALT/SGPT) 31 Alkaline Phosphatase 60 Total Protein 6.9 Albumin 3.5 Globulin 3.40 H Albumin/Globulin Ratio 1.02 Exam/Review of Systems Exam Vitals Vital Signs Date Temp Pulse Resp B/P (MAP) Pulse Ox O2 O2 Flow FiO2 Time Delivery Rate 11/18/18 98.3 75 20 132/70 93 Room Air 15:20 (90) 11/16/18 2.0 10:36 11/15/18 35 04:18 Intake and Output 11/17/18 11/17/18 11/18/18 1515:00 23:00 07:00 IntakeIntake Total 880 ml 940 ml 200 ml BalanceBalance 880 ml 940 ml 200 ml Results Results 24hrs Laboratory Tests Test 11/18/18 06:20 White Blood Count 11.4 H Red Blood Count 5.18 Hemoglobin 15.6 Hematocrit 47.0 Mean Corpuscular Volume 90.7 Mean Corpuscular Hemoglobin 30.1 Mean Corpuscular Hemoglobin Concent 33.2 Red Cell Distribution Width 12.0 Platelet Count 272 Mean Platelet Volume 10.7 H Immature Granulocytes % 0.600 H Neutrophils % 73.6 Lymphocytes % 16.0 Monocytes % 5.5 Eosinophils % 3.6 Basophils % 0.7 Nucleated Red Blood Cells % 0.0 Immature Granulocytes # 0.070 H Neutrophils # 8.4 H Lymphocytes # 1.8 Monocytes # 0.6 Eosinophils # 0.4 Basophils # 0.1 Nucleated Red Blood Cells # 0.0 Sodium Level 140 Potassium Level 4.6 Chloride Level 99 Carbon Dioxide Level 33 H Anion Gap 8 Blood Urea Nitrogen 9 Creatinine 0.82 Est Glomerular Filtrat Rate mL/min > 60 Glucose Level 99 Calcium Level 9.4 Total Bilirubin 0.7 Direct Bilirubin 0.00 Indirect Bilirubin 0.7 Aspartate Amino Transf (AST/SGOT) 24 Alanine Aminotransferase (ALT/SGPT) 31 Alkaline Phosphatase 60 Total Protein 6.9 Albumin 3.5 Globulin 3.40 H Albumin/Globulin Ratio 1.02 Medications Medication Current Medications IV Flush (NS 3 ml) 3 ml PER PROTOCOL IV ; Start 11/14/18 at 21:00 Ondansetron HCl (Zofran Inj) 4 mg Q6H PRN IV NAUSEA/VOMITING; Start 11/14/18 at 21:00 Acetaminophen/ Hydrocodone Bitart ([place] (5/325)) 1 tab Q6H PRN PO .MOD PAIN 4- 6 Last administered on 11/16/18at 12:12; Admin Dose 1 TAB; Start 11/14/18 at 21:00 Docusate Sodium (Colace) 100 mg Q12H PRN PO .CONSTIPATION; Start 11/14/18 at 21:00 Bisacodyl (Dulcolax) 5 mg DAILY PRN PO .CONSTIPATION; Start 11/14/18 at 21:00 Morphine Sulfate (morphine) 4 mg Q4H PRN IV .SEVERE PAIN 7-10 Last administered on 11/18/18at 15:13; Admin Dose 4 MG; Start 11/15/18 at 01:00 Acetaminophen (Tylenol Tab) 650 mg Q6H PRN PO MILD PAIN(1-3)OR ELEVATED TEMP; Start 11/14/18 at 23:30 Ibuprofen (Motrin) 600 mg Q6H PRN PO PAIN LEVEL 6-10; Start 11/14/18 at 23:30 Acetaminophen/ Hydrocodone Bitart ([place] (5/325)) 1 tab Q6H PRN PO PAIN LEVEL 6-10 Last administered on 11/18/18at 08:46; Admin Dose 1 TAB; Start 11/14/18 at 23:30 Diphenhydramine HCl (Benadryl) 25 mg Q6H PRN IV ITCHING; Start 11/14/18 at 23:30 Heparin Sodium (Porcine) (Heparin (5000 Units/1ml)) 5,000 unit Q12 SC Last administered on 11/18/18at 08:44; Admin Dose 5,000 UNIT; Start 11/15/18 at 09:00 Collagenase (Santyl) 1 applic DAILY TOP Last administered on 11/18/18at 08:39; Admin Dose 1 APPLIC; Start 11/17/18 at 09:00 Ciprofloxacin (Cipro) 500 mg BID@06,18 PO Last administered on 11/18/18at 06:53; Admin Dose 500 MG; Start 11/17/18 at 18:00 FRANCIS ENCINAS NP Nov 18, 2018 17:14
[2018-11-18] MEDS ORDERED: VANCOMYCIN IV PER PHARMACY XX SCH (18:00)
[2018-11-18] MEDS: VANCOMYCIN 1.5 GM/NS 250 ML 250 ML IVPB SCH (20:29)
[2018-11-18 20:49] VITALS: BP 142/84; PULSE 72; RESP 18
[2018-11-18 22:30] VITALS: BP 136/72; PULSE 82; RESP 18
--- NOTE | 2018-11-18 23:14 | CONS ---
DATE OF ADMISSION: 11/14/2018 DATE OF CONSULTATION: 11/18/2018 TYPE OF CONSULTATION: Infectious Disease. REASON FOR CONSULTATION: Antibiotic management. HISTORY OF PRESENT ILLNESS: Harry Frye is a 33-year-old male with no past medical histo ry, who presented to [facility] with symptoms of right inguinal swelling and pain. He was t ransferred to [facility]. He originally had pain in the right groin went to [facility] Emergency Room. CT scan showed no bowel obstruction or free anterior abdominal air. Whitney lopez had a large fatty infiltrated liver and a small ventral hernia containing fat. He was given pain m edicines and discharged home. On the day of admission, he had nausea, but he started to develop redn ess and pain in the right groin, which took him back to the emergency room. An ultrasound was perfor med, which showed heterogeneous collection, which measured 3.4 x 2.3 x 1.3 cm in the right inguinal r egion, possibly reflecting phlegmon or abscess. He was afebrile at [place], temperature 99.3, nor mal sinus rhythm. His EKG was normal sinus rhythm without ST or T-wave abnormalities. Dr. Valdes saw the patient and felt that he needed to go to the operating room for incision and debridement. He wa s started on vancomycin and Zosyn and an ultrasound was done and he was felt to have a right groin ab scess. He also had an elevated white count and was taken to the operating room. He had a right groi n abscess, phlegmon cellulitis. He had incision. No drainage of the right groin abscess. INDICATIONS: A 33-year-old morbidly obese male with induration and redness and tenderness in the rig ht groin. HOSPITAL COURSE: On the , his white count was 18.8 with 86% neutrophils, hemoglobin and hematocri t of 15.1 and 45.1, platelet count 228,000. BUN and creatinine 10/0.78, glucose of 161. The patient was noted to be morbidly obese. There is still redness and induration, groin abscess grew coag-nega tive staph. Today, his white count is 11.4. BUN and creatinine is 9/0.82. Testicular ultrasound sh owed normal appearing testicles with vascular flow seen symmetrically with each testicle, thickening of the scrotal wall. The patient continues to complain of right groin pain. PHYSICAL EXAMINATION: GENERAL: He is lying in bed, in no acute distress. VITAL SIGNS: Stable. He is afebrile. SKIN: Without generalized rash. HEENT: Within normal limits. NECK: Supple. LYMPH NODES: None palpable. CHEST: Decreased breath sounds at the bases. HEART: Without murmur or gallop. ABDOMEN: Soft, obese, nontender. Bowel sounds are active. GENITOURINARY: Right groin surgical dressing in place. EXTREMITIES: Without cyanosis, clubbing, or edema. RECTAL AND GENITAL: Deferred. NEUROLOGIC: No focal neurological abnormalities. IMPRESSION AND PLAN: The patient had a right groin abscess, is growing staphylococcus epidermidis. He is 78 kilograms. His BMI is 58. He is prediabetic. White count today is 11.4. He is currently on Cipro. He should be on vancomycin until we get results of his testing. He was on vancomycin. I will dictate my findings to the hospitalist. Dictated By: JAY CUMMINGS MD, JD/NTS Conf#: [id number] DID#: [id number] CC: BELL STEVENSON MD; MIRIAN GUERRA MD;*[facility]*
[2018-11-19] MEDS: DOCUSATE SODIUM 100 MG CAP PO PRN (00:03)
[2018-11-19] MEDS: morphine 2 MG INJ IV PRN ×2 (00:31→20:48)
[2018-11-19 02:30] VITALS: BP 141/71; PULSE 82; RESP 18
[2018-11-19] MEDS: HYDROCODONE/APAP (5/325) TAB PO PRN ×2 (04:57→17:50)
[2018-11-19] MEDS: VANCOMYCIN 1.5 GM/NS 250 ML 250 ML IVPB SCH ×3 (05:09→20:50)
[2018-11-19] MEDS: CIPROFLOXACIN 500 MG TAB PO SCH ×2 (06:24→17:48)
[2018-11-19 07:47] VITALS: BP 123/64; PULSE 53; RESP 18
--- NOTE | 2018-11-19 09:16 | PN ---
Date/Time of Note Date/Time of Note DATE: 11/19/18 TIME: 09:15 Assessment/Plan VTE Prophylaxis Risk score (from Nsg)>0 risk: 1 SCD applied (from Ns): No SCD contraindicated: other Pharmacological prophylaxis: heparin Lines/Catheters IV Catheter Type (from Nrs): Peripheral IV Assessment/Plan Hospital Course SUBJECTIVE: Continues to complain of right groin pain. OBJECTIVE: Physical Exam General: Morbidly obese, 33 year-old male lying in bed in no apparent distress. HEENT: Normocephalic, atraumatic. Eyes: Anicteric sclerae, conjunctivae clear. ENT: Nasal septum is midline, oral mucosa moist. Neck: Short and obese. Respiratory: Bilaterally diminished breath sounds. No use of accessory muscles of respiration. No adventitious breath sounds. Cardiovascular: S1, S2 heard. Regular rate and rhythm. Abdomen: Soft, nontender, and nondistended. Bowel sounds positive in all 4 quadrants. Genitourinary: Right groin surgical dressing in place. Extremities: No cyanosis, no clubbing, no edema. Peripheral pulses palpable. Neurologic: Cranial nerves II through XII grossly intact. The patient is awake, alert, and oriented. Labs & Vitals per chart ASSESSMENT & PLAN 33-year-old male with no significant past medical history other than morbid obesity (BMI 58 kg/m) who presented to an outside facility with a right groin abscess, who was transferred to [facility] for further management because of insurance reasons. 1. Right groin abscess. Status post incision and drainage on 11/14/2018. Culture showing coagulase-negative Staphylococcus. Continue local wound care. Antimicrobials as per sensitivities. 2. Obesity. BMI 58 kg/m. Weight reduction advised. 3. Prediabetes. Hemoglobin A1c 5.9. Monitor random glucose levels. Low carbohydrate diet advised. 4. Fluids, electrolytes, and nutrition. Regular diet. 5. DVT prophylaxis. Subcutaneous heparin. 6. Plan. Continue antimicrobials. Obtain home health for daily dressing changes. Discharge plan is to discharge patient home once home health is arranged and ant ibiotics are finalized by ID. The patient was seen in collaboration with Dr. Wadsworth. Result Diagram: 11/19/18 0429 11/19/18 0426 Results 24hrs Laboratory Tests Test 11/19/18 04:26 11/19/18 04:29 Sodium Level 140 Potassium Level 4.1 Chloride Level 99 Carbon Dioxide Level 34 H Anion Gap 7 Blood Urea Nitrogen 11 Creatinine 0.99 Est Glomerular Filtrat Rate mL/min > 60 Glucose Level 112 Calcium Level 9.6 C-Reactive Protein 6.8 H White Blood Count 9.4 Red Blood Count 5.23 Hemoglobin 15.7 Hematocrit 48.1 Mean Corpuscular Volume 92.0 Mean Corpuscular Hemoglobin 30.0 Mean Corpuscular Hemoglobin Concent 32.6 Red Cell Distribution Width 11.9 Platelet Count 284 Mean Platelet Volume 11.0 H Immature Granulocytes % 0.600 H Neutrophils % 71.6 Lymphocytes % 15.1 Monocytes % 6.9 Eosinophils % 4.8 Basophils % 1.0 Nucleated Red Blood Cells % 0.0 Immature Granulocytes # 0.060 H Neutrophils # 6.8 Lymphocytes # 1.4 Monocytes # 0.7 Eosinophils # 0.5 Basophils # 0.1 Nucleated Red Blood Cells # 0.0 Erythrocyte Sedimentation Rate 36 H Phosphorus Level 5.6 H Magnesium Level 1.9 Exam/Review of Systems Exam Vitals Vital Signs Date Temp Pulse Resp B/P (MAP) Pulse Ox O2 O2 Flow FiO2 Time Delivery Rate 11/19/18 97.7 53 18 123/64 95 07:47 (83) 11/18/18 Room Air 15:20 11/16/18 2.0 10:36 Intake and Output 11/18/18 11/18/18 11/19/18 1515:00 23:00 07:00 IntakeIntake Total 600 ml 730 ml BalanceBalance 600 ml 730 ml Results Results 24hrs Laboratory Tests Test 11/19/18 04:26 11/19/18 04:29 Sodium Level 140 Potassium Level 4.1 Chloride Level 99 Carbon Dioxide Level 34 H Anion Gap 7 Blood Urea Nitrogen 11 Creatinine 0.99 Est Glomerular Filtrat Rate mL/min > 60 Glucose Level 112 Calcium Level 9.6 C-Reactive Protein 6.8 H White Blood Count 9.4 Red Blood Count 5.23 Hemoglobin 15.7 Hematocrit 48.1 Mean Corpuscular Volume 92.0 Mean Corpuscular Hemoglobin 30.0 Mean Corpuscular Hemoglobin Concent 32.6 Red Cell Distribution Width 11.9 Platelet Count 284 Mean Platelet Volume 11.0 H Immature Granulocytes % 0.600 H Neutrophils % 71.6 Lymphocytes % 15.1 Monocytes % 6.9 Eosinophils % 4.8 Basophils % 1.0 Nucleated Red Blood Cells % 0.0 Immature Granulocytes # 0.060 H Neutrophils # 6.8 Lymphocytes # 1.4 Monocytes # 0.7 Eosinophils # 0.5 Basophils # 0.1 Nucleated Red Blood Cells # 0.0 Erythrocyte Sedimentation Rate 36 H Phosphorus Level 5.6 H Magnesium Level 1.9 Medications Medication Current Medications IV Flush (NS 3 ml) 3 ml PER PROTOCOL IV ; Start 11/14/18 at 21:00 Ondansetron HCl (Zofran Inj) 4 mg Q6H PRN IV NAUSEA/VOMITING; Start 11/14/18 at 21:00 Acetaminophen/ Hydrocodone Bitart ([place] (5/325)) 1 tab Q6H PRN PO .MOD PAIN 4- 6 Last administered on 11/19/18 04:57; Admin Dose 1 TAB; Start 11/14/18 at 21:00 Docusate Sodium (Colace) 100 mg Q12H PRN PO .CONSTIPATION Last administered on 11/19/18 00:03; Admin Dose 100 MG; Start 11/14/18 at 21:00 Bisacodyl (Dulcolax) 5 mg DAILY PRN PO .CONSTIPATION Last administered on 11/19/18 00:03; Admin Dose 5 MG; Start 11/14/18 at 21:00 Morphine Sulfate (morphine) 4 mg Q4H PRN IV .SEVERE PAIN 7-10 Last administered on 11/19/18 00:31; Admin Dose 4 MG; Start 11/15/18 at 01:00 Acetaminophen (Tylenol Tab) 650 mg Q6H PRN PO MILD PAIN(1-3)OR ELEVATED TEMP Last administered on 11/19/18 00:03; Admin Dose 650 MG; Start 11/14/18 at 23:30 Ibuprofen (Motrin) 600 mg Q6H PRN PO PAIN LEVEL 6-10; Start 11/14/18 at 23:30 Acetaminophen/ Hydrocodone Bitart ([place] (5/325)) 1 tab Q6H PRN PO PAIN LEVEL 6-10 Last administered on 11/18/18 08:46; Admin Dose 1 TAB; Start 11/14/18 at 23:30 Diphenhydramine HCl (Benadryl) 25 mg Q6H PRN IV ITCHING; Start 11/14/18 at 23:30 Heparin Sodium (Porcine) (Heparin (5000 Units/1ml)) 5,000 unit Q12 SC Last administered on 11/18/18at 21:17; Admin Dose 5,000 UNIT; Start 11/15/18 at 09:00 Collagenase (Santyl) 1 applic DAILY TOP Last administered on 11/18/18at 08:39; Admin Dose 1 APPLIC; Start 11/17/18 at 09:00 Ciprofloxacin (Cipro) 500 mg BID@06,18 PO Last administered on 11/19/18at 06:24; Admin Dose 500 MG; Start 11/17/18 at 18:00 Vancomycin HCl (Vanco Iv Per Pharmacy) VANCOMYCIN PER PHARMACY PER PROTOCOL XX ; Start 11/18/18 at 18:00 Vancomycin/Sodium Chloride 250 ml @ 83.333 mls/ hr Q8H IVPB Last administered on 11/19/18at 05:09; Admin Dose 83.333 MLS/HR; Start 11/18/18 at 19:30 FRANCIS ENCINAS NP Nov 19, 2018 09:16
[2018-11-19] MEDS: COLLAGENASE 5 GM (UD JAR) TOP SCH (09:29)
[2018-11-19] MEDS: HEPARIN 5,000 UNIT/1 ML VIAL SC SCH ×2 (09:32→20:52)
[2018-11-19 14:00] VITALS: BP 147/72; PULSE 72; RESP 18
--- NOTE | 2018-11-19 14:53 | CONS ---
Assessment/Plan Assessment/Plan Hospital Course (Demo Recall) Patient is alert feels better looks comfortable no fevers overnight WBC 9.4 platelets 284 neutrophils 71.6 BUN 11 creatinine 0.99 Wound culture growing coag negative staph suspicious Antimicrobials: Vancomycin, Cipro This is a morbidly obese well-developed middle-aged man who is alert in no distress head atraumatic normocephalic neck is supple chest rise symmetrical breath sounds diminished bases heart S1-S2 abdomen soft bowel sounds present extremities without cyanosis skin patient has a dressing that is clean dry and intact over his right groin area Assessment: 1. Systemic inflammatory response syndrome with resolving leukocytosis 2. Status post right groin abscess I&D 3. Morbid obesity Plan: Patient remains stable continue antibiotics, anticipate discharge on oral Bactrim Consultation Date/Type/Reason Admit Date/Time Nov 14, 2018 at 21:00 Initial Consult Date 11/14/18 Type of Consult id Date/Time of Note DATE: 11/19/18 TIME: 14:52 Exam/Review of Systems Exam Vitals Vital Signs Date Temp Pulse Resp B/P (MAP) Pulse Ox O2 O2 Flow FiO2 Time Delivery Rate 11/19/18 97.7 53 18 123/64 95 07:47 (83) 11/18/18 Room Air 15:20 11/16/18 2.0 10:36 Intake and Output 11/18/18 11/18/18 11/19/18 1515:00 23:00 07:00 IntakeIntake Total 600 ml 730 ml BalanceBalance 600 ml 730 ml Results Result Diagram: 11/19/18 0429 11/19/18 0426 Results 24hrs Laboratory Tests Test 11/19/18 04:26 11/19/18 04:29 Sodium Level 140 Potassium Level 4.1 Chloride Level 99 Carbon Dioxide Level 34 H Anion Gap 7 Blood Urea Nitrogen 11 Creatinine 0.99 Est Glomerular Filtrat Rate mL/min > 60 Glucose Level 112 Calcium Level 9.6 C-Reactive Protein 6.8 H White Blood Count 9.4 Red Blood Count 5.23 Hemoglobin 15.7 Hematocrit 48.1 Mean Corpuscular Volume 92.0 Mean Corpuscular Hemoglobin 30.0 Mean Corpuscular Hemoglobin Concent 32.6 Red Cell Distribution Width 11.9 Platelet Count 284 Mean Platelet Volume 11.0 H Immature Granulocytes % 0.600 H Neutrophils % 71.6 Lymphocytes % 15.1 Monocytes % 6.9 Eosinophils % 4.8 Basophils % 1.0 Nucleated Red Blood Cells % 0.0 Immature Granulocytes # 0.060 H Neutrophils # 6.8 Lymphocytes # 1.4 Monocytes # 0.7 Eosinophils # 0.5 Basophils # 0.1 Nucleated Red Blood Cells # 0.0 Erythrocyte Sedimentation Rate 36 H Phosphorus Level 5.6 H Magnesium Level 1.9 Medications Medication Current Medications IV Flush (NS 3 ml) 3 ml PER PROTOCOL IV ; Start 11/14/18 at 21:00 Ondansetron HCl (Zofran Inj) 4 mg Q6H PRN IV NAUSEA/VOMITING; Start 11/14/18 at 21:00 Acetaminophen/ Hydrocodone Bitart ([place] (5/325)) 1 tab Q6H PRN PO .MOD PAIN 4- 6 Last administered on 11/19/18at 04:57; Admin Dose 1 TAB; Start 11/14/18 at 21:00 Docusate Sodium (Colace) 100 mg Q12H PRN PO .CONSTIPATION Last administered on 11/19/18 00:03; Admin Dose 100 MG; Start 11/14/18 at 21:00 Bisacodyl (Dulcolax) 5 mg DAILY PRN PO .CONSTIPATION Last administered on 11/19/18 00:03; Admin Dose 5 MG; Start 11/14/18 at 21:00 Morphine Sulfate (morphine) 4 mg Q4H PRN IV .SEVERE PAIN 7-10 Last administered on 11/19/18 00:31; Admin Dose 4 MG; Start 11/15/18 at 01:00 Acetaminophen (Tylenol Tab) 650 mg Q6H PRN PO MILD PAIN(1-3)OR ELEVATED TEMP Last administered on 11/19/18at 00:03; Admin Dose 650 MG; Start 11/14/18 at 23:30 Ibuprofen (Motrin) 600 mg Q6H PRN PO PAIN LEVEL 6-10; Start 11/14/18 at 23:30 Acetaminophen/ Hydrocodone Bitart ([place] (5/325)) 1 tab Q6H PRN PO PAIN LEVEL 6-10 Last administered on 11/18/18 08:46; Admin Dose 1 TAB; Start 11/14/18 at 23:30 Diphenhydramine HCl (Benadryl) 25 mg Q6H PRN IV ITCHING; Start 11/14/18 at 23:30 Heparin Sodium (Porcine) (Heparin (5000 Units/1ml)) 5,000 unit Q12 SC Last administered on 11/19/18at 09:32; Admin Dose 5,000 UNIT; Start 11/15/18 at 09:00 Collagenase (Santyl) 1 applic DAILY TOP Last administered on 11/19/18at 09:29; Admin Dose 1 APPLIC; Start 11/17/18 at 09:00 Ciprofloxacin (Cipro) 500 mg BID@06,18 PO Last administered on 11/19/18at 06:24; Admin Dose 500 MG; Start 11/17/18 at 18:00 Vancomycin HCl (Vanco Iv Per Pharmacy) VANCOMYCIN PER PHARMACY PER PROTOCOL XX ; Start 11/18/18 at 18:00 Vancomycin/Sodium Chloride 250 ml @ 83.333 mls/ hr Q8H IVPB Last administered on 11/19/18at 13:59; Admin Dose 83.333 MLS/HR; Start 11/19/18 at 13:00 Miscellaneous Information (*Rx Drug Level Order Reminder*) VANCO TROUGH @ 0,400 0400 ONCE XX ; Start 11/20/18 at 04:00; Stop 11/20/18 at 04:01 NIKOLAY GUTIERREZ NP Nov 19, 2018 14:53
[2018-11-19 20:15] VITALS: BP 126/59; PULSE 86; RESP 20
[2018-11-20] MEDS: HYDROCODONE/APAP (5/325) TAB PO PRN ×2 (00:40→11:13)
[2018-11-20] MEDS: morphine 2 MG INJ IV PRN ×5 (02:21→22:27)
[2018-11-20] MEDS: VANCOMYCIN 1.5 GM/NS 250 ML 250 ML IVPB SCH (05:51)
[2018-11-20] MEDS: CIPROFLOXACIN 500 MG TAB PO SCH ×2 (05:51→17:59)
[2018-11-20 07:23] VITALS: BP 127/87; PULSE 74; RESP 19
[2018-11-20] MEDS: COLLAGENASE 5 GM (UD JAR) TOP SCH (08:35)
[2018-11-20] MEDS: HEPARIN 5,000 UNIT/1 ML VIAL SC SCH ×2 (08:36→22:30)
[2018-11-20] MEDS: VANCOMYCIN HCL 1.75 GM in SOD CHLORIDE 0.9% 500 ML IVPB SCH ×2 (12:42→22:27)
--- NOTE | 2018-11-20 13:05 | PN ---
Date/Time of Note Date/Time of Note DATE: 11/20/18 TIME: 13:02 Assessment/Plan VTE Prophylaxis Risk score (from Nsg)>0 risk: 2 SCD applied (from Nsg): Yes Pharmacological prophylaxis: heparin Lines/Catheters IV Catheter Type (from Nrsg): Mid Line Assessment/Plan Hospital Course Assessment and plan #Right groin abscess Patient status post incision and drainage on November 14, 2018 Culture showing coagulase negative Staphylococcus Continue wound care Continue antibiotics per ID recommendations #Obesity BMI of 58 kg/m Weight reduction was advised #Prediabetes Monitor glucose trend Disposition and plan. Follow-up with ID for antibiotic regimen upon transition to outpatient. Follow-up with egg caser for home health services set up with daily dressing changes. Anticipate discharge once the aformentiond set up Discussed POC with Dr. Lu Result Diagram: 11/20/18 0400 11/20/18 0400 Results 24hrs Laboratory Tests Test 11/20/18 04:00 White Blood Count 8.6 Red Blood Count 5.49 Hemoglobin 16.5 Hematocrit 50.3 Mean Corpuscular Volume 91.6 Mean Corpuscular Hemoglobin 30.1 Mean Corpuscular Hemoglobin Concent 32.8 Red Cell Distribution Width 11.9 Platelet Count 294 Mean Platelet Volume 10.8 H Immature Granulocytes % 0.800 H Neutrophils % 67.1 Lymphocytes % 19.0 Monocytes % 6.6 Eosinophils % 5.6 Basophils % 0.9 Nucleated Red Blood Cells % 0.0 Immature Granulocytes # 0.070 H Neutrophils # 5.8 Lymphocytes # 1.6 Monocytes # 0.6 Eosinophils # 0.5 Basophils # 0.1 Nucleated Red Blood Cells # 0.0 Sodium Level 139 Potassium Level 3.9 Chloride Level 98 Carbon Dioxide Level 34 H Anion Gap 7 Blood Urea Nitrogen 11 Creatinine 0.84 Est Glomerular Filtrat Rate mL/min > 60 Glucose Level 109 Calcium Level 9.6 Phosphorus Level 5.4 H Magnesium Level 1.8 Vancomycin Level Trough 9.4 L Subjective 24 Hr Interval Summary Free Text/Dictation Patient comfortable at present. Seen ambulating in room. RN at bedside. Exam/Review of Systems Exam Vitals Vital Signs Date Temp Pulse Resp B/P (MAP) Pulse Ox O2 O2 Flow FiO2 Time Delivery Rate 11/20/18 98.1 74 19 127/87 98 07:23 (100) 11/20/18 21 00:57 11/18/18 Room Air 15:20 11/16/18 2.0 10:36 Intake and Output 11/19/18 11/19/18 11/20/18 1515:00 23:00 07:00 IntakeIntake Total 650 ml 200 ml 250 ml BalanceBalance 650 ml 200 ml 250 ml Constitutional: alert, oriented Psych: nl mood/affect Head: normocephalic Neck: supple, non-tender Respiratory: clear to auscultation Cardiovascular: other (regular rate ) Musculoskeletal: nl extremities to inspection 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: BAGEL MAKER II-XII intact, nl mental status, nl speech Skin: other (wound on right groin with packing in wound and dressing. ) Results Results 24hrs Laboratory Tests Test 11/20/18 04:00 White Blood Count 8.6 Red Blood Count 5.49 Hemoglobin 16.5 Hematocrit 50.3 Mean Corpuscular Volume 91.6 Mean Corpuscular Hemoglobin 30.1 Mean Corpuscular Hemoglobin Concent 32.8 Red Cell Distribution Width 11.9 Platelet Count 294 Mean Platelet Volume 10.8 H Immature Granulocytes % 0.800 H Neutrophils % 67.1 Lymphocytes % 19.0 Monocytes % 6.6 Eosinophils % 5.6 Basophils % 0.9 Nucleated Red Blood Cells % 0.0 Immature Granulocytes # 0.070 H Neutrophils # 5.8 Lymphocytes # 1.6 Monocytes # 0.6 Eosinophils # 0.5 Basophils # 0.1 Nucleated Red Blood Cells # 0.0 Sodium Level 139 Potassium Level 3.9 Chloride Level 98 Carbon Dioxide Level 34 H Anion Gap 7 Blood Urea Nitrogen 11 Creatinine 0.84 Est Glomerular Filtrat Rate mL/min > 60 Glucose Level 109 Calcium Level 9.6 Phosphorus Level 5.4 H Magnesium Level 1.8 Vancomycin Level Trough 9.4 L Medications Medication Current Medications IV Flush (NS 3 ml) 3 ml PER PROTOCOL IV ; Start 11/14/18 at 21:00 Ondansetron HCl (Zofran Inj) 4 mg Q6H PRN IV NAUSEA/VOMITING; Start 11/14/18 at 21:00 Acetaminophen/ Hydrocodone Bitart ([place] (5/325)) 1 tab Q6H PRN PO .MOD PAIN 4- 6 Last administered on 11/20/18at 11:13; Admin Dose 1 TAB; Start 11/14/18 at 21:00 Docusate Sodium (Colace) 100 mg Q12H PRN PO .CONSTIPATION Last administered on 11/19/18 00:03; Admin Dose 100 MG; Start 11/14/18 at 21:00 Bisacodyl (Dulcolax) 5 mg DAILY PRN PO .CONSTIPATION Last administered on 11/19/18 00:03; Admin Dose 5 MG; Start 11/14/18 at 21:00 Morphine Sulfate (morphine) 4 mg Q4H PRN IV .SEVERE PAIN 7-10 Last administered on 11/20/18 12:42; Admin Dose 4 MG; Start 11/15/18 at 01:00 Acetaminophen (Tylenol Tab) 650 mg Q6H PRN PO MILD PAIN(1-3)OR ELEVATED TEMP Last administered on 11/19/18 00:03; Admin Dose 650 MG; Start 11/14/18 at 23:30 Ibuprofen (Motrin) 600 mg Q6H PRN PO PAIN LEVEL 6-10; Start 11/14/18 at 23:30 Acetaminophen/ Hydrocodone Bitart ([place] (5/325)) 1 tab Q6H PRN PO PAIN LEVEL 6-10 Last administered on 11/18/18 08:46; Admin Dose 1 TAB; Start 11/14/18 at 23:30 Diphenhydramine HCl (Benadryl) 25 mg Q6H PRN IV ITCHING; Start 11/14/18 at 23:30 Heparin Sodium (Porcine) (Heparin (5000 Units/1ml)) 5,000 unit Q12 SC Last administered on 11/20/18 08:36; Admin Dose 5,000 UNIT; Start 11/15/18 at 09:00 Collagenase (Santyl) 1 applic DAILY TOP Last administered on 11/20/18 08:35; Admin Dose 1 APPLIC; Start 11/17/18 at 09:00 Ciprofloxacin (Cipro) 500 mg BID@06,18 PO Last administered on 11/20/18 05:51; Admin Dose 500 MG; Start 11/17/18 at 18:00 Vancomycin HCl (Vanco Iv Per Pharmacy) VANCOMYCIN PER PHARMACY PER PROTOCOL XX ; Start 11/18/18 at 18:00 Vancomycin HCl 1.75 gm/Sodium Chloride 500 ml @ 125 mls/hr Q8H IVPB Last administered on 11/20/18 12:42; Admin Dose 125 MLS/HR; Start 11/20/18 at 13:00 LING CLAYTON NP Nov 20, 2018 13:05
--- NOTE | 2018-11-20 14:48 | CONS ---
Assessment/Plan Assessment/Plan Hospital Course (Demo Recall) Patient is alert feels good, no fevers Wound culture growing coag negative staph suspicious Antimicrobials: Vancomycin, Cipro This is a morbidly obese well-developed middle-aged man who is alert in no distress head atraumatic normocephalic neck is supple chest rise symmetrical breath sounds diminished bases heart S1-S2 abdomen soft bowel sounds present extremities without cyanosis skin: Patient has right groin dressing that is clean dry and intact, the wound looks clean, there is some induration still present underneath the wound Assessment: 1. Systemic inflammatory response syndrome with resolving leukocytosis 2. Status post right groin abscess I&D 3. Morbid obesity Plan: Patient remains stable, continue antibiotics, anticipate discharge on oral Bactrim patient will benefit from warm moist compresses to the area Discussed with patient, discussed with RN Consultation Date/Type/Reason Admit Date/Time Nov 14, 2018 at 21:00 Initial Consult Date 11/14/18 Type of Consult id Date/Time of Note DATE: 11/20/18 TIME: 14:46 Exam/Review of Systems Exam Vitals Vital Signs Date Temp Pulse Resp B/P (MAP) Pulse Ox O2 O2 Flow FiO2 Time Delivery Rate 11/20/18 98.1 74 19 127/87 98 07:23 (100) 11/20/18 21 00:57 11/18/18 Room Air 15:20 11/16/18 2.0 10:36 Intake and Output 11/19/18 11/19/18 11/20/18 1515:00 23:00 07:00 IntakeIntake Total 650 ml 200 ml 250 ml BalanceBalance 650 ml 200 ml 250 ml Results Result Diagram: 11/20/18 0400 11/20/18 0400 Results 24hrs Laboratory Tests Test 11/20/18 04:00 White Blood Count 8.6 Red Blood Count 5.49 Hemoglobin 16.5 Hematocrit 50.3 Mean Corpuscular Volume 91.6 Mean Corpuscular Hemoglobin 30.1 Mean Corpuscular Hemoglobin Concent 32.8 Red Cell Distribution Width 11.9 Platelet Count 294 Mean Platelet Volume 10.8 H Immature Granulocytes % 0.800 H Neutrophils % 67.1 Lymphocytes % 19.0 Monocytes % 6.6 Eosinophils % 5.6 Basophils % 0.9 Nucleated Red Blood Cells % 0.0 Immature Granulocytes # 0.070 H Neutrophils # 5.8 Lymphocytes # 1.6 Monocytes # 0.6 Eosinophils # 0.5 Basophils # 0.1 Nucleated Red Blood Cells # 0.0 Sodium Level 139 Potassium Level 3.9 Chloride Level 98 Carbon Dioxide Level 34 H Anion Gap 7 Blood Urea Nitrogen 11 Creatinine 0.84 Est Glomerular Filtrat Rate mL/min > 60 Glucose Level 109 Calcium Level 9.6 Phosphorus Level 5.4 H Magnesium Level 1.8 Vancomycin Level Trough 9.4 L Medications Medication Current Medications IV Flush (NS 3 ml) 3 ml PER PROTOCOL IV ; Start 11/14/18 at 21:00 Ondansetron HCl (Zofran Inj) 4 mg Q6H PRN IV NAUSEA/VOMITING; Start 11/14/18 at 21:00 Acetaminophen/ Hydrocodone Bitart ([place] (5/325)) 1 tab Q6H PRN PO .MOD PAIN 4- 6 Last administered on 11/20/18 11:13; Admin Dose 1 TAB; Start 11/14/18 at 21:00 Docusate Sodium (Colace) 100 mg Q12H PRN PO .CONSTIPATION Last administered on 11/19/18 00:03; Admin Dose 100 MG; Start 11/14/18 at 21:00 Bisacodyl (Dulcolax) 5 mg DAILY PRN PO .CONSTIPATION Last administered on 11/19/18 00:03; Admin Dose 5 MG; Start 11/14/18 at 21:00 Morphine Sulfate (morphine) 4 mg Q4H PRN IV .SEVERE PAIN 7-10 Last administered on 11/20/18 12:42; Admin Dose 4 MG; Start 11/15/18 at 01:00 Acetaminophen (Tylenol Tab) 650 mg Q6H PRN PO MILD PAIN(1-3)OR ELEVATED TEMP Last administered on 11/19/18 00:03; Admin Dose 650 MG; Start 11/14/18 at 23:30 Ibuprofen (Motrin) 600 mg Q6H PRN PO PAIN LEVEL 6-10; Start 11/14/18 at 23:30 Acetaminophen/ Hydrocodone Bitart ([place] (5/325)) 1 tab Q6H PRN PO PAIN LEVEL 6-10 Last administered on 11/18/18 08:46; Admin Dose 1 TAB; Start 11/14/18 at 23:30 Diphenhydramine HCl (Benadryl) 25 mg Q6H PRN IV ITCHING; Start 11/14/18 at 23:30 Heparin Sodium (Porcine) (Heparin (5000 Units/1ml)) 5,000 unit Q12 SC Last administered on 11/20/18at 08:36; Admin Dose 5,000 UNIT; Start 11/15/18 at 09:00 Collagenase (Santyl) 1 applic DAILY TOP Last administered on 11/20/18at 08:35; Admin Dose 1 APPLIC; Start 11/17/18 at 09:00 Ciprofloxacin (Cipro) 500 mg BID@06,18 PO Last administered on 11/20/18at 05:51; Admin Dose 500 MG; Start 11/17/18 at 18:00 Vancomycin HCl (Vanco Iv Per Pharmacy) VANCOMYCIN PER PHARMACY PER PROTOCOL XX ; Start 11/18/18 at 18:00 Vancomycin HCl 1.75 gm/Sodium Chloride 500 ml @ 125 mls/hr Q8H IVPB Last administered on 11/20/18at 12:42; Admin Dose 125 MLS/HR; Start 11/20/18 at 13:00 Miscellaneous Information (*Rx Drug Level Order Reminder*) VANCO TROUGH @ 1,200 1200 ONCE XX ; Start 11/21/18 at 12:00; Stop 11/21/18 at 12:01 NIKOLAY GUTIERREZ NP Nov 20, 2018 14:48
[2018-11-20 15:22] VITALS: BP 102/59; PULSE 80; RESP 20
[2018-11-20 19:00] VITALS: BP 119/70; PULSE 70; RESP 18
[2018-11-21 01:55] VITALS: BP 117/60; PULSE 76; RESP 18
[2018-11-21] MEDS: morphine 2 MG INJ IV PRN ×2 (02:14→06:21)
[2018-11-21] MEDS: HYDROCODONE/APAP (5/325) TAB PO PRN (04:17)
[2018-11-21] MEDS: CIPROFLOXACIN 500 MG TAB PO SCH (06:20)
[2018-11-21] MEDS: DOCUSATE SODIUM 100 MG CAP PO PRN (06:20)
[2018-11-21] MEDS: VANCOMYCIN HCL 1.75 GM in SOD CHLORIDE 0.9% 500 ML IVPB SCH (06:21)
[2018-11-21 07:54] VITALS: BP 128/67; PULSE 67; RESP 18
[2018-11-21] MEDS ORDERED: HYDROCODONE/APAP (5/325) TAB PO PRN (08:00)
[2018-11-21] MEDS: COLLAGENASE 5 GM (UD JAR) TOP SCH (09:16)
[2018-11-21] MEDS: HEPARIN 5,000 UNIT/1 ML VIAL SC SCH (09:21)
--- NOTE | 2018-11-21 12:03 | PDOCDIS ---
Discharge Instructions DIAGNOSIS Discharge Diagnosis #Right groin abscess #Obesity BMI of 58 kg/m #Prediabetes CONDITION [id number] Patient Condition: [id number] Stable HOME CARE INSTRUCTIONS: [id number] Diet Instructions: [id number] Low Fat /Cholesterol ACTIVITY: [id number] Activity Restrictions: [id number] Slowly Increase Activity Rest between Activity Avoid heavy lifting [id number] Bathing Restrictions: [id number] Shower FOLLOW UP/APPOINTMENTS Follow-up Plan Follow up with Dr. Darrel Melgar (surgeon) in one week Office Address [address] [place] [address] Office Follow up with Dr. Young Gonzalez (infectious disease consult) in one week Office Address [address] [place] [address] Office LING CLAYTON NP Nov 21, 2018 12:03
--- NOTE | 2018-11-21 21:34 | DS ---
Date/Time of Note Date/Time of Note DATE: 11/21/18 TIME: 21:34 Discharge Summary Admission/Discharge Info Admit Date/Time Nov 14, 2018 at 21:00 Discharge Date/Time Nov 21, 2018 at 13:30 Discharge Diagnosis #Right groin abscess #Obesity BMI of 58 kg/m #Prediabetes Patient Condition: Stable Hospital Course This is a 33-year-old male with no previous past medical history who came to [facility] from transfer from [facility] for right groin abscess. Patient reported that he started to have pain on his groin estimated on November 12, 2018. He did have ultrasound done on right groin showing a 2.4 cm x 2.2 cm x 1.2 cm heterogeneous collection in the right inguinal region. Patient was seen by surgeon. Further evaluation showed him to have a right groin abscess. He did have incision and drainage on November 14, 2018. Culture did show him to have coagulation negative staph which she was seen by infectious disease consult and placed on appropriate antibiotics. He was provided with appropriate wound care. During his course of stay he did improve. He was afebrile on the day of his discharge. He is also assisted with family service caseworker and we did provide the patient with home health services for transition to outpatient along with antibiotic regimen. He is otherwise otherwise medically. Patient had a BMI of 58 kg/m. He was counseled on weight reduction. The plan of care was discussed with the patient and he verbalized understanding. On the day of discharge patient was in stable condition Discussed POC with Dr. Lu [place] Meds Active Scripts Saccharomyces Boulardii* (Florastor*) 250 Mg Cap, 500 MG PO BID, #20 CAP Prov:LING CLAYTON [employer] 11/21/18 Sulfamethoxazole/Trimethoprim* (Bactrim Ds* Tablet) 1 Each Tablet, 1 TAB PO BID, #20 TAB Prov:LING CLAYTON NP 11/21/18 Hydrocodone Bit-Acetaminophen (Hydrocodone Bit-APAP) 5-325MG Tablet, 2 TAB PO Q4H PRN for MODERATE PAIN LEVEL 4-6, #30 TAB Prov:LING CLAYTON NP 11/21/18 Follow-up Plan Follow up with Dr. Darrel Melgar (surgeon) in one week Office Address [address] [place] [address]. [address] [place] [id number] Office Follow up with Dr. Young Gonzalez (infectious disease consult) in one week Office Address [address] [place] [address] [address] [place] [address] Office Primary Care Provider Not On Staff Doctor Time spent on discharge: > 30 minutes LING CLAYTON NP Nov 21, 2018 21:34
== END 2018-11-21 13:30 | disposition home health service (06) | DRG 580 ==
LOC: E/R 20:51 → REC 21:00 → MS3 22:20 → TEL 11-18 00:12 → MS1 11-18 22:10
PROVIDERS: ADMIT Family Medicine; ATTEND Internal Medicine
PROC: 0J9C0ZZ Drainage of Pelvic Region Subcutaneous Tissue and Fascia, Open Approach (ICD-10-PCS; principal; 2018-11-14 23:00)
DX: L02.214 Cutaneous abscess of groin (principal); Z68.43 Body mass index [BMI] 50.0-59.9, adult; L03.314 Cellulitis of groin; E66.01 Morbid (severe) obesity due to excess calories; B95.62 Methicillin resistant Staphylococcus aureus infection as the cause of diseases classified elsewhere; J44.9 Chronic obstructive pulmonary disease, unspecified; G47.30 Sleep apnea, unspecified; R73.03 Prediabetes; B95.8 Unspecified staphylococcus as the cause of diseases classified elsewhere; Z99.89 Dependence on other enabling machines and devices
CPT/HCPCS: 76870; 80048; 80053; 80061; 80202; 83036; 83605; 83735; 84100; 84443; 85025; 85651; 86140; 87070; 94660; J1644; J1885; J2250; J2270; J2405; J2543; J3010; J3370; J3480; J7030; J7040

== ENCOUNTER 2018-11-26 01:10 | Emergency (ER) | payer BC ==
[~2018-11-26] VITALS: Ht 177.8 cm; Wt 181.3 kg
[2018-11-26 01:18] VITALS: Ht 177.8 cm; Wt 181.3 kg
--- NOTE | 2018-11-26 01:44 | ERD ---
ER Documentation Chief Complaint Chief Complaint Pt report hives after taking sulfa HPI 33-year-old male presents to ED reporting rash on his right arm, chest. He states that he had an incision and drainage performed in the ED on . He was prescribed Bactrim and [place] for pain in which she started the next day. He states that he believes the rash is from Bactrim as he has never taken this and he has taken [place] before. He states the rash itches. He has discontinued taking the Bactrim. He denies any signs of respiratory distress. He denies any other symptoms. ROS All systems reviewed and are negative except as per history of present illness. Medications Home Meds Active Scripts Prednisone* (Prednisone*) 20 Mg Tab, 60 MG PO DAILY for 7 Days, TAB Prov:EZE ZUNIGA PA-C 11/26/18 Diphenhydramine Hcl* (Benadryl*) 25 Mg Cap, 25 MG PO Q6 PRN for ITCHING/RASH, #30 TAB Prov:EZE ZUNIGA PA-C 11/26/18 Cephalexin* (Keflex*) 500 Mg Capsule, 500 MG PO BID for 7 Days, CAP Prov:LAURIEAVEZE GUERRERO PA-C 11/26/18 Saccharomyces Boulardii* (Florastor*) 250 Mg Cap, 500 MG PO BID, #20 CAP Prov:LING CLAYTON NP 11/21/18 Sulfamethoxazole/Trimethoprim* (Bactrim Ds* Tablet) 1 Each Tablet, 1 TAB PO BID, #20 TAB Prov:LING CLAYTON NP 11/21/18 Hydrocodone Bit-Acetaminophen (Hydrocodone Bit-APAP) 5-325MG Tablet, 2 TAB PO Q4H PRN for MODERATE PAIN LEVEL 4-6, #30 TAB Prov:LING CLAYTON NP 11/21/18 Allergies Allergies: Coded Allergies: No Known Allergy (Unverified , 11/14/18) PMhx/Soc History of Surgery: Yes (incision and drainage today) Anesthesia Reaction: No Hx 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 Disorder: No Hx Respiratory Disorders: Yes (pneumonia, 10 years ago) Hx Cardiac Disorders: No Hx Psychiatric Problems: No Hx Miscellaneous Medical Probl: Yes (sleep apnea 6 years; doesn't use a CPAP; doesn't have it anymore) Hx Alcohol Use: Yes Hx Substance Use: Yes (marijuana, daily) Hx Tobacco Use: Yes (tried it) FmHx Family History: No diabetes Physical Exam Vitals Vital Signs Date Temp Pulse Resp B/P (MAP) Pulse Ox O2 O2 Flow FiO2 Time Delivery Rate 11/26/18 99.1 85 16 141/74 100 01:18 (96) Physical Exam Const: No acute distress Head: Atraumatic Resp: Clear to auscultation bilaterally Cardio: Regular rate and rhythm, Abd: Soft, non tender, non distended. Skin: Erythematous rash on the right upper arm, chest Results 24 hrs Current Medications Medications Dose Sig/Caren Start Time Status Last (Trade) Ordered Route PRN Stop Time Admin Dose Reason Admin Prednisone 60 mg ONCE ONCE 11/26/18 DC 11/26/18 (Prednisone) PO 02:00 01:56 11/26/18 02:01 25 mg ONCE ONCE 11/26/18 DC 11/26/18 Diphenhydrami PO 02:00 01:56 ne HCl 11/26/18 02:01 (Benadryl) Procedures/MDM ED COURSE: The patient was stable throughout ED course. I kept the patient informed of laboratory and diagnostic imaging results throughout the ED course. PROCEDURES: ED wound dressing change MEDICATIONS GIVEN: Prednisone, Benadryl Patient tolerated medication well with no adverse reactions. Patient reported improvement in pain. MEDICAL DECISION MAKING: Patient is a 33-year-old male presenting with allergic reaction to Bactrim. I have low suspicion for cellulitis, abscess, Saini-Donald syndrome, respiratory distress. Patient was told to discontinue Bactrim. He was given Benadryl and prednisone in the ED course which improved his symptoms. He was given prescriptions for these as well. He is appropriate for outpatient treatment. He was given strict return to ED precautions if symptoms persist or worsen. He agrees with the plan and all questions were answered. Patient had concerns for infection and I prescribed Keflex to replace the Bactrim. Vital signs were reviewed. Patient is afebrile. Patient was not hypoxic. Patient was hemodynamically stable. Patient was told to follow up with primary care for further care and management. PRESCRIPTION: Prednisone, Benadryl, Keflex DISCHARGE: At this time, patient is stable for discharge and outpatient management. I have instructed the patient to follow-up with their primary care physician in 1-2 days. I have discussed with the patient the possibility of needing to see a specialist for further workup and imaging studies if symptoms persist. I have instructed the patient to promptly return to the ER for any new or worsening symptoms including increased pain, fever, nausea, vomiting, weakness or LOC. The patient expressed understanding of and agreement with this plan. All questions were answered. Home care instructions were provided. Disclaimer: Inadvertent spelling and grammatical errors are likely due to EHR/dictation software use and do not reflect on the overall quality of patient care. Also, please note that the electronic time recorded on this note does not necessarily reflect the actual time of the patient encounter. Departure Diagnosis: Primary Impression: Allergy or intolerance to drug Condition: Fair Patient Instructions: Anaphylaxis, General Referrals: [facility] YOU HAVE RECEIVED A MEDICAL SCREENING EXAM AND THE RESULTS INDICATE THAT YOU DO NOT HAVE A CONDITION THAT REQUIRES URGENT TREATMENT IN THE EMERGENCY DEPARTMENT. FURTHER EVALUATION AND TREATMENT OF YOUR CONDITION CAN WAIT UNTIL YOU ARE SEEN IN YOUR DOCTORS OFFICE WITHIN THE NEXT 1-2 DAYS. IT IS YOUR RESPONSIBILITY TO MAKE AN APPOINTMENT FOR FOLOW-UP CARE. IF YOU HAVE A PRIMARY DOCTOR --you should call your primary doctor and schedule an appointment IF YOU DO NOT HAVE A PRIMARY DOCTOR YOU CAN CALL OUR PHYSICIAN REFERRAL HOTLINE AT IF YOU CAN NOT AFFORD TO SEE A PHYSICIAN YOU CAN CHOSE FROM THE FOLLOWING [facility] [address] [facility] [place]. [facility] [address] [facility] [facility] [address] [facility] [address] [facility] [facility] [address] [facility]. [facility]. [address] [facility]. [facility] YOU HAVE RECEIVED A MEDICAL SCREENING EXAM AND THE RESULTS INDICATE THAT YOU DO NOT HAVE A CONDITION THAT REQUIRES URGENT TREATMENT IN THE EMERGENCY DEPARTMENT. FURTHER EVALUATION AND TREATMENT OF YOUR CONDITION CAN WAIT UNTIL YOU ARE SEEN IN YOUR DOCTORS OFFICE WITHIN THE NEXT 1-2 DAYS. IT IS YOUR RESPONSIBILITY TO MAKE AN APPOINTMENT FOR FOLOW-UP CARE. IF YOU HAVE A PRIMARY DOCTOR --you should call your primary doctor and schedule and appointment IF YOU DO NOT HAVE A PRIMARY DOCTOR YOU CAN CALL OUR PHYSICIAN REFERRAL HOTLINE AT . IF YOU CAN NOT AFFORD TO SEE A PHYSICIAN YOU CAN CHOSE FROM THE FOLLOWING [facility] INSTITUTIONS: [facility] [address] [place] [address] [facility] [address] [place] [address] [facility] [address] [place] [address] Additional Instructions: Call your primary care doctor TOMORROW for an appointment during the next 1-2 days.See the doctor sooner or return here if your condition worsens before your appointment time. EZE ZUNIGA PA-C Nov 26, 2018 01:44
[2018-11-26] MEDS ORDERED: DIPHENHYDRAMINE 25 MG CAP PO ONE (02:00)
[2018-11-26] MEDS ORDERED: predniSONE 20 MG TAB PO ONE (02:00)
[2018-11-26 03:11] VITALS: BP 127/79; PULSE 87; RESP 16
== END 2018-11-26 03:11 | disposition home or self-care (01) ==
LOC: FTE 01:10
DX: T37.0X1A Poisoning by sulfonamides, accidental (unintentional), initial encounter (principal); F17.210 Nicotine dependence, cigarettes, uncomplicated
CPT/HCPCS: J7512; Z7502; Z7610; 99283